=== PATIENT | male | born 1995 | race Caucasian/White ===

== ENCOUNTER 2018-01-06 21:37 | Inpatient (IN) | payer MEDICAID, SELFPAY ==
[2018-01-06 22:35] LABS: HEMATOCRIT 43.4 % (42.0-52.0); HEMOGLOBIN 14.4 g/dl (14.0-18.0); MEAN CORPUSCULAR HEMOGLOBIN 29.8 pg (27.0-33.0); MEAN CORPUSCULAR HGB CONC 33.2 g/dl (32.0-36.5); MEAN CORPUSCULAR VOLUME 89.7 fl (80.0-96.0); PLATELET COUNT, AUTOMATED 238 10^3/uL (150-450); RED BLOOD COUNT 4.84 10^6/uL (4.30-6.10); RED CELL DISTRIBUTION WIDTH 13.1 % (11.5-14.5); WHITE BLOOD COUNT 10.3 10^3/uL (4.0-10.0)
[2018-01-06 23:07] LABS: AMPHETAMINES LEVEL URINE NEGATIVE (NEGATIVE); BARBITURATES URINE NEGATIVE (NEGATIVE); BENZODIAZEPINES URINE NEGATIVE (NEGATIVE); CANNABINOIDS URINE NEGATIVE (NEGATIVE); COCAINE METABOLITE URINE NEGATIVE (NEGATIVE); METHADONE URINE NEGATIVE (NEGATIVE); OPIATES URINE NEGATIVE (NEGATIVE); PHENCYCLIDINE URINE NEGATIVE (NEGATIVE)
[2018-01-06 23:18] LABS: ALBUMIN 3.9 GM/DL (3.2-5.2); ALBUMIN/GLOBULIN RATIO 1.15 (1.00-1.93); ALKALINE PHOSPHATASE 51 U/L (45-117); ALT/SGPT 69 U/L (12-78); ANION GAP 5 MEQ/L (8-16); AST/SGOT 28 U/L (7-37); BILIRUBIN,DIRECT < 0.1 MG/DL (0.0-0.2); BILIRUBIN,TOTAL 0.2 MG/DL (0.2-1.0); BLOOD UREA NITROGEN 16 MG/DL (7-18); CALCIUM LEVEL 9.1 MG/DL (8.5-10.1); CARBON DIOXIDE LEVEL 31 MEQ/L (21-32); CHLORIDE LEVEL 104 MEQ/L (98-107); CREATININE FOR GFR 0.85 MG/DL (0.70-1.30); ETHYL ALCOHOL (ETHANOL) < 0.003 % (0.000-0.010); GLOMERULAR FILTRATION RATE > 60.0 (>60); GLUCOSE, FASTING 95 MG/DL (70-100); POTASSIUM SERUM 4.3 MEQ/L (3.5-5.1); SALICYLATE LEVEL < 1.7 MG/DL (5.0-30.0); SODIUM LEVEL 140 MEQ/L (136-145); THYROID STIMULATING HORMONE 0.063 uIU/ML (0.358-3.740); TOTAL PROTEIN 7.3 GM/DL (6.4-8.2); VALPROIC ACID (DEPAKOTE) 68.1 UG/ML (50.0-100.0)
[2018-01-06 23:20] LABS: ACETAMINOPHEN LEVEL < 2.0 UG/ML (10.0-30.0)
[2018-01-07] MEDS ORDERED: MOM 30ML SUSPENSION UDC PO (00:30)
[2018-01-07] MEDS ORDERED: ACETAMINOPHEN TAB 650MG DOSE (2X325MG) PO (00:30)
[2018-01-07] MEDS ORDERED: ALBUTEROL 90 MCG/ACT 8GM HFA INHALER INH (09:45)
[2018-01-07] MEDS: DIVALPROEX 500 MG TAB PO ×2 (10:03→20:40)
[2018-01-07] MEDS: traZODone 50 MG TAB PO (20:40)
[2018-01-08 07:28] LABS: HEMATOCRIT 41.5 % (42.0-52.0); HEMOGLOBIN 13.9 g/dl (14.0-18.0); MEAN CORPUSCULAR HEMOGLOBIN 29.9 pg (27.0-33.0); MEAN CORPUSCULAR HGB CONC 33.5 g/dl (32.0-36.5); MEAN CORPUSCULAR VOLUME 89.2 fl (80.0-96.0); PLATELET COUNT, AUTOMATED 240 10^3/uL (150-450); RED BLOOD COUNT 4.65 10^6/uL (4.30-6.10); RED CELL DISTRIBUTION WIDTH 13.1 % (11.5-14.5); WHITE BLOOD COUNT 8.2 10^3/uL (4.0-10.0)
[2018-01-08 07:56] LABS: FREE THYROXINE INDEX 2.2 % (1.4-3.8); T UPTAKE 30 % (33-40); THYROID STIMULATING HORMONE 0.062 uIU/ML (0.358-3.740); THYROXINE (T4) 7.2 UG/DL (4.5-12.0)
[2018-01-08] MEDS: DIVALPROEX 500 MG TAB PO ×2 (08:19→20:37)
[2018-01-08] MEDS: INFLUENZA QUADRIVALENT PF VACCINE 0.5ML SYRINGE (90686) IM (08:20)
[2018-01-08] MEDS: traZODone 50 MG TAB PO (20:37)
[2018-01-09] MEDS: DIVALPROEX 500 MG TAB PO ×2 (08:19→20:41)
[2018-01-09] MEDS: traZODone 50 MG TAB PO (20:41)
[2018-01-09] MEDS: MAALOX 30 ML SUSP *UDC PO (21:17)
[2018-01-10 07:27] LABS: VALPROIC ACID (DEPAKOTE) 75.2 UG/ML (50.0-100.0)
[2018-01-10] MEDS: DIVALPROEX 500 MG TAB PO (08:05)
== END 2018-01-10 13:30 | disposition home or self-care (01) | DRG 754 ==
LOC: M ED 21:37 → M ED INP 01-07 00:20 → M PSY 01-07 02:17
DX: F32.9 Major depressive disorder, single episode, unspecified (principal); F84.0 Autistic disorder; G40.909 Epilepsy, unspecified, not intractable, without status epilepticus; F17.210 Nicotine dependence, cigarettes, uncomplicated; J45.909 Unspecified asthma, uncomplicated; Z79.899 Other long term (current) drug therapy; Z91.030 Bee allergy status; Z91.018 Allergy to other foods

== ENCOUNTER 2018-01-20 04:27 | Emergency (ER) | payer MEDICAID ==
[2018-01-20] MEDS: IBUPROFEN 600 MG TAB PO (06:15)
== END 2018-01-20 07:01 | disposition home or self-care (01) ==
LOC: M ED 04:27
DX: M25.572 Pain in left ankle and joints of left foot (principal); J45.909 Unspecified asthma, uncomplicated; F84.0 Autistic disorder; F33.9 Major depressive disorder, recurrent, unspecified; F20.9 Schizophrenia, unspecified; R56.9 Unspecified convulsions; F17.210 Nicotine dependence, cigarettes, uncomplicated; Z79.899 Other long term (current) drug therapy; Z86.2 Personal history of diseases of the blood and blood-forming organs and certain disorders involving the immune mechanism; Z91.018 Allergy to other foods; Z91.030 Bee allergy status
CPT/HCPCS: 73610

== ENCOUNTER 2018-12-09 20:58 | Emergency (ER) | payer MEDICAID ==
[~2018-12-09] VITALS: Ht 182.9 cm; Wt 83.2 kg
[~2018-12-09 20:58] MED LIST: DEPA1TAB3 PO; VENTAER INH; [UNRECOGNIZED DRUG - REMARK] PO
[2018-12-09 20:59] VITALS: BP 130/81
[2018-12-09] MEDS ORDERED: BENZ0.5T PO ×3 (21:07→21:22)
[2018-12-09] MEDS ORDERED: HALO5TA PO (21:07)
[2018-12-09] MEDS ORDERED: DEPA1TAB3 PO ×2 (21:20→21:22)
== END 2018-12-09 21:41 | disposition home or self-care (01) ==
LOC: M ED 20:58
DX: Z76.0 Encounter for issue of repeat prescription (principal); J45.909 Unspecified asthma, uncomplicated; G40.909 Epilepsy, unspecified, not intractable, without status epilepticus; F84.0 Autistic disorder; G80.9 Cerebral palsy, unspecified; Z79.899 Other long term (current) drug therapy; Z91.018 Allergy to other foods; Z91.030 Bee allergy status; F17.210 Nicotine dependence, cigarettes, uncomplicated

== ENCOUNTER 2022-09-02 16:25 | Inpatient (IN) | payer MEDICAID ==
[~2022-09-02] VITALS: Ht 180.3 cm; Wt 123.7 kg
[~2022-09-02 16:25] MED LIST changes: +BENZ0.5T23 PO; +HALO5TAB33 PO
[2022-09-02] MEDS ORDERED: LAMI25TA PO (16:35)
[2022-09-02 17:16] LABS: HEMATOCRIT 41.3 % (42.0-52.0); HEMOGLOBIN 13.8 g/dl (13.5-17.5); MEAN CORPUSCULAR HEMOGLOBIN 30.3 pg (27.0-33.0); MEAN CORPUSCULAR HGB CONC 33.4 g/dl (32.0-36.5); MEAN CORPUSCULAR VOLUME 90.6 fl (80.0-96.0); PLATELET COUNT, AUTOMATED 244 10^3/uL (150-450); RED BLOOD COUNT 4.56 10^6/uL (4.30-6.10); WHITE BLOOD COUNT 8.4 10^3/uL (4.0-10.0)
[2022-09-02 17:40] LABS: AMPHETAMINES LEVEL URINE NEGATIVE (NEGATIVE); BARBITURATES URINE NEGATIVE (NEGATIVE); BENZODIAZEPINES URINE NEGATIVE (NEGATIVE); CANNABINOIDS URINE POSITIVE (NEGATIVE); COCAINE METABOLITE URINE NEGATIVE (NEGATIVE); METHADONE URINE NEGATIVE (NEGATIVE); OPIATES URINE NEGATIVE (NEGATIVE); PHENCYCLIDINE URINE NEGATIVE (NEGATIVE)
[2022-09-02 17:54] LABS: RSV AMPLIFICATION NEGATIVE (NEGATIVE)
[2022-09-02 17:56] LABS: ACETAMINOPHEN LEVEL < 2.0 UG/ML (10.0-30.0); ALBUMIN 3.6 GM/DL (3.2-5.2); ALT/SGPT 30 U/L (12-78); BILIRUBIN,DIRECT 0.1 MG/DL (0.0-0.2); BILIRUBIN,TOTAL 0.3 MG/DL (0.2-1.0); BLOOD UREA NITROGEN 12 MG/DL (7-18); CALCIUM LEVEL 9.5 MG/DL (8.5-10.1); CARBON DIOXIDE LEVEL 29 MEQ/L (21-32); CHLORIDE LEVEL 103 MEQ/L (98-107); CREATININE FOR GFR 0.96 MG/DL (0.70-1.30); ETHYL ALCOHOL (ETHANOL) < 0.003 % (0.000-0.010); GLOMERULAR FILTRATION RATE > 60.0 (>60); GLUCOSE, FASTING 119 MG/DL (70-100); SALICYLATE LEVEL 2.1 MG/DL (5.0-30.0); SODIUM LEVEL 138 MEQ/L (136-145); THYROID STIMULATING HORMONE 0.727 uIU/ML (0.358-3.740); VALPROIC ACID (DEPAKOTE) 15.8 UG/ML (50.0-100.0)
[2022-09-02] MEDS ORDERED: VENTAER INH (21:03)
[2022-09-02] MEDS ORDERED: VALP1CAP2 PO (21:12)
[2022-09-02] MEDS ORDERED: HOME MED LIST COMPLETE! XX SCH (21:15)
[2022-09-03] MEDS ORDERED: lamoTRIgine 25MG TAB PO SCH (09:00)
[2022-09-03] MEDS ORDERED: ISOVUE-370 76% 100ML VIAL As Ordered ONE (11:15)
[2022-09-03] MEDS ORDERED: MOM 30ML SUSPENSION UDC PO PRN (14:10)
[2022-09-03] MEDS ORDERED: ALBUTEROL 90 MCG/ACT 8GM HFA INHALER INH PRN (14:10)
[2022-09-03] MEDS ORDERED: MAALOX 30 ML SUSP *UDC PO PRN (14:10)
[2022-09-03] MEDS: NICOTINE 21MG/24HR 1 EA TRANSDERMAL TD SCH (14:49)
[2022-09-03] MEDS: VALPROIC ACID 250MG CAP PO SCH (22:25)
[2022-09-04 06:18] VITALS: BP 129/77
[2022-09-04] MEDS ORDERED: INFLUENZA QUADRIVALENT PF VACCINE 0.5ML SYRINGE IM.IMMUN ONE (09:00)
[2022-09-04] MEDS: VALPROIC ACID 250MG CAP PO SCH ×2 (10:13→20:03)
[2022-09-04] MEDS: NICOTINE 21MG/24HR 1 EA TRANSDERMAL TD SCH (10:13)
[2022-09-04 18:08] VITALS: BP 134/60
[2022-09-04] MEDS: traZODone 50 MG TAB PO PRN (20:03)
[2022-09-04] MEDS: lamoTRIgine 25MG TAB PO SCH (20:03)
[2022-09-05 06:44] VITALS: BP 128/58
[2022-09-05] MEDS: lamoTRIgine 25MG TAB PO SCH ×2 (08:05→20:06)
[2022-09-05] MEDS: VALPROIC ACID 250MG CAP PO SCH ×2 (08:05→20:06)
[2022-09-05] MEDS: NICOTINE 21MG/24HR 1 EA TRANSDERMAL TD SCH (08:06)
[2022-09-05 18:25] VITALS: BP 133/60
[2022-09-05] MEDS: traZODone 50 MG TAB PO PRN (20:06)
[2022-09-06 06:33] VITALS: BP 130/60
[2022-09-06] MEDS: lamoTRIgine 25MG TAB PO SCH ×2 (08:19→21:48)
[2022-09-06] MEDS: VALPROIC ACID 250MG CAP PO SCH ×2 (08:19→21:49)
[2022-09-06] MEDS: NICOTINE 21MG/24HR 1 EA TRANSDERMAL TD SCH (08:20)
[2022-09-06 18:00] VITALS: BP 143/68
[2022-09-06] MEDS: traZODone 50 MG TAB PO PRN (22:49)
[2022-09-06] MEDS: LORazepam 1 MG TAB PO PRN (23:16)
[2022-09-07 07:14] VITALS: BP 130/81
[2022-09-07] MEDS: lamoTRIgine 25MG TAB PO SCH ×2 (08:17→20:47)
[2022-09-07] MEDS: NICOTINE 21MG/24HR 1 EA TRANSDERMAL TD SCH (08:18)
[2022-09-07] MEDS: VALPROIC ACID 250MG CAP PO SCH ×2 (11:37→20:47)
[2022-09-07 16:22] VITALS: BP 140/60
[2022-09-07] MEDS: LORazepam 1 MG TAB PO PRN (22:09)
[2022-09-07] MEDS: traZODone 50 MG TAB PO PRN (22:09)
[2022-09-08 06:42] VITALS: BP 136/81
[2022-09-08] MEDS: NICOTINE 21MG/24HR 1 EA TRANSDERMAL TD SCH (07:49)
[2022-09-08] MEDS: VALPROIC ACID 250MG CAP PO SCH ×2 (07:49→20:34)
[2022-09-08] MEDS: lamoTRIgine 25MG TAB PO SCH ×2 (07:50→20:34)
[2022-09-08 16:06] VITALS: BP 138/63
[2022-09-08] MEDS: LORazepam 1 MG TAB PO PRN (20:35)
[2022-09-09 06:43] VITALS: BP 127/77
[2022-09-09] MEDS: lamoTRIgine 25MG TAB PO SCH ×2 (09:59→20:16)
[2022-09-09] MEDS: NICOTINE 21MG/24HR 1 EA TRANSDERMAL TD SCH (10:00)
[2022-09-09] MEDS: VALPROIC ACID 250MG CAP PO SCH ×2 (10:01→20:17)
[2022-09-09 16:28] VITALS: BP 139/68
[2022-09-09] MEDS: traZODone 50 MG TAB PO PRN (20:16)
[2022-09-09] MEDS ORDERED: LORazepam 2 MG/ML VIAL IM STA (21:55)
[2022-09-09] MEDS ORDERED: diphenhydrAMINE 50MG/ML VIAL IM STA (21:55)
[2022-09-09] MEDS ORDERED: HALOPERIDOL DECANOATE 100 MG/ML VIAL (J1631) IM STA (21:55)
[2022-09-09] MEDS ORDERED: HALOPERIDOL 5MG/ML VIAL (J1630 PER 1) IM STA (22:02)
[2022-09-10 06:53] VITALS: BP 115/65
[2022-09-10] MEDS: NICOTINE 21MG/24HR 1 EA TRANSDERMAL TD SCH (09:40)
[2022-09-10] MEDS: lamoTRIgine 25MG TAB PO SCH ×2 (09:41→20:14)
[2022-09-10] MEDS: VALPROIC ACID 250MG CAP PO SCH ×2 (09:41→20:15)
[2022-09-10 18:45] VITALS: BP 132/66
[2022-09-11 06:17] VITALS: BP 137/65
[2022-09-11] MEDS: lamoTRIgine 25MG TAB PO SCH ×2 (08:09→20:28)
[2022-09-11] MEDS: NICOTINE 21MG/24HR 1 EA TRANSDERMAL TD SCH (08:09)
[2022-09-11] MEDS: VALPROIC ACID 250MG CAP PO SCH ×2 (08:09→20:27)
[2022-09-11 16:11] VITALS: BP 142/72
[2022-09-11] MEDS: LORazepam 1 MG TAB PO PRN (21:29)
[2022-09-12 06:09] VITALS: BP 132/61
[2022-09-12] MEDS: NICOTINE 21MG/24HR 1 EA TRANSDERMAL TD SCH (07:51)
[2022-09-12] MEDS: VALPROIC ACID 250MG CAP PO SCH ×2 (07:52→20:01)
[2022-09-12] MEDS: lamoTRIgine 25MG TAB PO SCH ×2 (07:52→20:00)
[2022-09-12 16:22] VITALS: BP 136/82
[2022-09-12] MEDS: LORazepam 1 MG TAB PO PRN (16:42)
[2022-09-13 06:32] VITALS: BP 132/74
[2022-09-13] MEDS: lamoTRIgine 25MG TAB PO SCH ×2 (09:09→20:11)
[2022-09-13] MEDS: NICOTINE 21MG/24HR 1 EA TRANSDERMAL TD SCH (09:09)
[2022-09-13] MEDS: VALPROIC ACID 250MG CAP PO SCH ×2 (09:09→20:11)
[2022-09-13 16:13] VITALS: BP 125/89
[2022-09-13] MEDS ORDERED: OLANZapine ORAL DISINTEGRATING TAB 5MG PO ONE (21:25)
[2022-09-14 06:27] VITALS: BP 145/72
[2022-09-14] MEDS: lamoTRIgine 25MG TAB PO SCH ×2 (09:59→20:05)
[2022-09-14] MEDS: VALPROIC ACID 250MG CAP PO SCH ×2 (10:00→20:05)
[2022-09-14] MEDS: NICOTINE 21MG/24HR 1 EA TRANSDERMAL TD SCH (10:01)
[2022-09-14] MEDS ORDERED: OLANZapine ORAL DISINTEGRATING TAB 5MG PO PRN (13:45)
[2022-09-14 18:08] VITALS: BP 136/71
[2022-09-14] MEDS: IBUPROFEN 400MG TAB PO PRN (20:06)
[2022-09-15 06:23] VITALS: BP 128/63
[2022-09-15] MEDS: NICOTINE 21MG/24HR 1 EA TRANSDERMAL TD SCH (08:07)
[2022-09-15] MEDS: lamoTRIgine 25MG TAB PO SCH ×2 (08:07→20:29)
[2022-09-15] MEDS: VALPROIC ACID 250MG CAP PO SCH ×2 (08:07→20:29)
[2022-09-15 18:05] VITALS: BP 144/72
[2022-09-15] MEDS: IBUPROFEN 400MG TAB PO PRN (20:30)
[2022-09-16 05:57] VITALS: BP 140/75
[2022-09-16] MEDS: NICOTINE 21MG/24HR 1 EA TRANSDERMAL TD SCH (09:00)
[2022-09-16] MEDS: VALPROIC ACID 250MG CAP PO SCH ×2 (09:10→20:18)
[2022-09-16] MEDS: lamoTRIgine 25MG TAB PO SCH ×2 (09:10→20:18)
[2022-09-16 17:49] VITALS: BP 142/71
[2022-09-16] MEDS: IBUPROFEN 800 MG TAB PO PRN (20:56)
[2022-09-17 06:12] VITALS: BP 138/69
[2022-09-17] MEDS: lamoTRIgine 25MG TAB PO SCH ×2 (08:09→20:08)
[2022-09-17] MEDS: VALPROIC ACID 250MG CAP PO SCH ×2 (08:09→20:09)
[2022-09-17] MEDS: NICOTINE 21MG/24HR 1 EA TRANSDERMAL TD SCH (08:10)
[2022-09-17 18:11] VITALS: BP 142/71
[2022-09-17] MEDS: traZODone 50 MG TAB PO PRN (22:22)
[2022-09-18 06:01] VITALS: BP 127/60
[2022-09-18] MEDS: lamoTRIgine 25MG TAB PO SCH ×2 (08:19→20:42)
[2022-09-18] MEDS: NICOTINE 21MG/24HR 1 EA TRANSDERMAL TD SCH (08:19)
[2022-09-18] MEDS: VALPROIC ACID 250MG CAP PO SCH ×2 (08:19→20:42)
[2022-09-18 18:01] VITALS: BP 138/88
[2022-09-19] MEDS: traZODone 50 MG TAB PO PRN ×2 (00:13→23:49)
[2022-09-19 06:26] VITALS: BP 131/57
[2022-09-19] MEDS: NICOTINE 21MG/24HR 1 EA TRANSDERMAL TD SCH (08:08)
[2022-09-19] MEDS: VALPROIC ACID 250MG CAP PO SCH ×2 (08:08→20:22)
[2022-09-19] MEDS: lamoTRIgine 25MG TAB PO SCH ×2 (08:09→20:23)
[2022-09-19 18:00] VITALS: BP 149/78
[2022-09-20 05:55] VITALS: BP 117/57
[2022-09-20] MEDS: lamoTRIgine 25MG TAB PO SCH ×2 (08:10→20:13)
[2022-09-20] MEDS: VALPROIC ACID 250MG CAP PO SCH ×2 (08:10→20:13)
[2022-09-20] MEDS: NICOTINE 21MG/24HR 1 EA TRANSDERMAL TD SCH (08:10)
[2022-09-20 18:32] VITALS: BP 140/75
[2022-09-20] MEDS: traZODone 50 MG TAB PO PRN (23:20)
[2022-09-21 06:02] VITALS: BP 130/60
[2022-09-21] MEDS: NICOTINE 21MG/24HR 1 EA TRANSDERMAL TD SCH (08:26)
[2022-09-21] MEDS: lamoTRIgine 25MG TAB PO SCH ×2 (08:26→21:12)
[2022-09-21] MEDS: VALPROIC ACID 250MG CAP PO SCH ×2 (08:27→21:12)
[2022-09-21 16:21] VITALS: BP 145/69
[2022-09-21] MEDS: IBUPROFEN 800 MG TAB PO PRN (21:13)
[2022-09-21] MEDS: traZODone 50 MG TAB PO PRN (22:13)
[2022-09-22 06:19] VITALS: BP 126/73
[2022-09-22] MEDS: NICOTINE 21MG/24HR 1 EA TRANSDERMAL TD SCH (08:24)
[2022-09-22] MEDS: VALPROIC ACID 250MG CAP PO SCH ×2 (08:24→20:05)
[2022-09-22] MEDS: lamoTRIgine 25MG TAB PO SCH ×2 (08:24→20:05)
[2022-09-22] MEDS ORDERED: HALO5TAB33 PO (09:48)
[2022-09-22] MEDS ORDERED: IBUP80TA PO (09:48)
[2022-09-22 16:17] VITALS: BP 136/72
[2022-09-22] MEDS: IBUPROFEN 800 MG TAB PO PRN (20:05)
[2022-09-22] MEDS: traZODone 50 MG TAB PO PRN (22:56)
[2022-09-23 06:10] VITALS: BP 108/55
[2022-09-23] MEDS: NICOTINE 21MG/24HR 1 EA TRANSDERMAL TD SCH (09:00)
[2022-09-23] MEDS: lamoTRIgine 25MG TAB PO SCH ×2 (09:10→20:16)
[2022-09-23] MEDS: VALPROIC ACID 250MG CAP PO SCH ×2 (09:10→20:17)
[2022-09-23 16:37] VITALS: BP 140/68
[2022-09-23] MEDS: traZODone 50 MG TAB PO PRN (22:23)
[2022-09-24 06:34] VITALS: BP 128/57
[2022-09-24] MEDS: lamoTRIgine 25MG TAB PO SCH ×2 (08:22→20:30)
[2022-09-24] MEDS: VALPROIC ACID 250MG CAP PO SCH ×2 (08:23→20:30)
[2022-09-24] MEDS: NICOTINE 21MG/24HR 1 EA TRANSDERMAL TD SCH (08:24)
[2022-09-24 18:12] VITALS: BP 126/82
[2022-09-24] MEDS: traZODone 50 MG TAB PO PRN (23:11)
[2022-09-25 06:22] VITALS: BP 126/68
[2022-09-25] MEDS: NICOTINE 21MG/24HR 1 EA TRANSDERMAL TD SCH (09:00)
[2022-09-25] MEDS: lamoTRIgine 25MG TAB PO SCH ×2 (09:10→20:12)
[2022-09-25] MEDS: VALPROIC ACID 250MG CAP PO SCH ×2 (09:41→20:11)
[2022-09-25 16:32] VITALS: BP 140/78
[2022-09-25] MEDS: IBUPROFEN 800 MG TAB PO PRN (20:12)
[2022-09-25] MEDS: traZODone 50 MG TAB PO PRN (20:55)
[2022-09-26 06:34] VITALS: BP 116/52
[2022-09-26] MEDS: lamoTRIgine 25MG TAB PO SCH ×2 (07:54→20:28)
[2022-09-26] MEDS: NICOTINE 21MG/24HR 1 EA TRANSDERMAL TD SCH (07:55)
[2022-09-26] MEDS: VALPROIC ACID 250MG CAP PO SCH ×2 (07:55→20:28)
[2022-09-26] MEDS: IBUPROFEN 800 MG TAB PO PRN ×2 (07:56→20:28)
[2022-09-26 16:12] VITALS: BP 144/70
[2022-09-26] MEDS: traZODone 50 MG TAB PO PRN (21:59)
[2022-09-27 06:28] VITALS: BP 124/66
[2022-09-27] MEDS: NICOTINE 21MG/24HR 1 EA TRANSDERMAL TD SCH (09:00)
[2022-09-27] MEDS: lamoTRIgine 25MG TAB PO SCH ×2 (09:20→20:14)
[2022-09-27] MEDS: VALPROIC ACID 250MG CAP PO SCH ×2 (09:20→20:15)
[2022-09-27] MEDS: IBUPROFEN 800 MG TAB PO PRN ×2 (09:21→21:22)
[2022-09-27 16:22] VITALS: BP 138/69
[2022-09-27] MEDS ORDERED: ACETAMINOPHEN 500 MG TAB PO PRN (18:25)
[2022-09-27] MEDS: traZODone 50 MG TAB PO PRN (22:25)
[2022-09-28 06:09] VITALS: BP 144/67
[2022-09-28] MEDS: lamoTRIgine 25MG TAB PO SCH ×2 (09:00→20:51)
[2022-09-28] MEDS: NICOTINE 21MG/24HR 1 EA TRANSDERMAL TD SCH (09:00)
[2022-09-28] MEDS: VALPROIC ACID 250MG CAP PO SCH ×2 (09:00→20:51)
[2022-09-28 17:06] VITALS: BP 141/76
[2022-09-28] MEDS: IBUPROFEN 800 MG TAB PO PRN (20:52)
[2022-09-28] MEDS: traZODone 50 MG TAB PO PRN (22:59)
[2022-09-29 07:05] VITALS: BP 138/73
[2022-09-29] MEDS: NICOTINE 21MG/24HR 1 EA TRANSDERMAL TD SCH (09:00)
[2022-09-29] MEDS: VALPROIC ACID 250MG CAP PO SCH ×2 (09:18→21:37)
[2022-09-29] MEDS: lamoTRIgine 25MG TAB PO SCH ×2 (09:18→21:37)
[2022-09-29 18:13] VITALS: BP 132/76
[2022-09-29] MEDS: hydrOXYzine 50 MG TAB PO PRN (22:06)
[2022-09-29 22:22] LABS: RSV AMPLIFICATION NEGATIVE (NEGATIVE)
[2022-09-29] MEDS: traZODone 50 MG TAB PO PRN (22:55)
[2022-09-30 06:28] VITALS: BP 130/66
[2022-09-30] MEDS: NICOTINE 21MG/24HR 1 EA TRANSDERMAL TD SCH (09:00)
[2022-09-30] MEDS: VALPROIC ACID 250MG CAP PO SCH ×2 (09:29→20:17)
[2022-09-30] MEDS: lamoTRIgine 25MG TAB PO SCH ×2 (09:29→20:17)
[2022-09-30 18:13] VITALS: BP 130/77
[2022-09-30] MEDS: IBUPROFEN 800 MG TAB PO PRN (20:18)
[2022-09-30] MEDS: traZODone 50 MG TAB PO PRN (21:52)
[2022-09-30] MEDS: hydrOXYzine 50 MG TAB PO PRN (21:52)
[2022-10-01 06:33] VITALS: BP 135/70
[2022-10-01] MEDS: NICOTINE 21MG/24HR 1 EA TRANSDERMAL TD SCH (09:00)
[2022-10-01] MEDS: lamoTRIgine 25MG TAB PO SCH ×2 (09:07→20:04)
[2022-10-01] MEDS: VALPROIC ACID 250MG CAP PO SCH ×2 (09:07→20:04)
[2022-10-01] MEDS: IBUPROFEN 800 MG TAB PO PRN (09:08)
[2022-10-01 19:24] VITALS: BP 144/62
[2022-10-01] MEDS: hydrOXYzine 50 MG TAB PO PRN (20:04)
[2022-10-01] MEDS: traZODone 50 MG TAB PO PRN (23:14)
[2022-10-02 06:06] VITALS: BP 145/77
[2022-10-02] MEDS: NICOTINE 21MG/24HR 1 EA TRANSDERMAL TD SCH (09:00)
[2022-10-02] MEDS: VALPROIC ACID 250MG CAP PO SCH ×2 (09:22→20:51)
[2022-10-02] MEDS: lamoTRIgine 25MG TAB PO SCH ×2 (09:22→20:50)
[2022-10-02 18:27] VITALS: BP 136/76
[2022-10-02] MEDS: traZODone 50 MG TAB PO PRN (22:00)
[2022-10-03 07:13] VITALS: BP 136/78
[2022-10-03] MEDS: NICOTINE 21MG/24HR 1 EA TRANSDERMAL TD SCH (08:55)
[2022-10-03] MEDS: VALPROIC ACID 250MG CAP PO SCH ×2 (08:56→20:36)
[2022-10-03] MEDS: lamoTRIgine 25MG TAB PO SCH ×2 (08:56→20:36)
[2022-10-03 18:14] VITALS: BP 145/77
[2022-10-03] MEDS: hydrOXYzine 50 MG TAB PO PRN (20:36)
[2022-10-03] MEDS: traZODone 50 MG TAB PO PRN (23:18)
[2022-10-04 06:04] VITALS: BP 135/61
[2022-10-04] MEDS: NICOTINE 21MG/24HR 1 EA TRANSDERMAL TD SCH (09:00)
[2022-10-04] MEDS: lamoTRIgine 25MG TAB PO SCH ×2 (09:17→20:29)
[2022-10-04] MEDS: VALPROIC ACID 250MG CAP PO SCH ×2 (09:17→20:29)
[2022-10-04 18:12] VITALS: BP 139/78
[2022-10-04] MEDS: hydrOXYzine 50 MG TAB PO PRN (21:59)
[2022-10-04] MEDS: traZODone 50 MG TAB PO PRN (21:59)
[2022-10-05 06:11] VITALS: BP 132/59
[2022-10-05] MEDS: NICOTINE 21MG/24HR 1 EA TRANSDERMAL TD SCH (07:57)
[2022-10-05] MEDS: VALPROIC ACID 250MG CAP PO SCH ×2 (07:58→20:03)
[2022-10-05] MEDS: lamoTRIgine 25MG TAB PO SCH ×2 (07:59→20:03)
[2022-10-05 16:27] VITALS: BP 141/63
[2022-10-05] MEDS: hydrOXYzine 50 MG TAB PO PRN (20:04)
[2022-10-05] MEDS: IBUPROFEN 800 MG TAB PO PRN (21:53)
[2022-10-05] MEDS: traZODone 50 MG TAB PO PRN (21:53)
[2022-10-06 06:30] VITALS: BP 116/62
[2022-10-06] MEDS: lamoTRIgine 25MG TAB PO SCH ×2 (08:19→19:50)
[2022-10-06] MEDS: NICOTINE 21MG/24HR 1 EA TRANSDERMAL TD SCH (08:19)
[2022-10-06] MEDS: VALPROIC ACID 250MG CAP PO SCH ×2 (08:20→19:50)
[2022-10-06 16:17] VITALS: BP 141/72
[2022-10-06] MEDS: hydrOXYzine 50 MG TAB PO PRN (21:02)
[2022-10-06] MEDS: traZODone 50 MG TAB PO PRN (21:48)
[2022-10-07 06:20] VITALS: BP 129/63
[2022-10-07] MEDS: VALPROIC ACID 250MG CAP PO SCH ×2 (07:59→20:11)
[2022-10-07] MEDS: lamoTRIgine 25MG TAB PO SCH ×2 (07:59→20:11)
[2022-10-07] MEDS: NICOTINE 21MG/24HR 1 EA TRANSDERMAL TD SCH (08:01)
[2022-10-07 16:31] VITALS: BP 145/73
[2022-10-07] MEDS: traZODone 50 MG TAB PO PRN (21:41)
[2022-10-08 06:11] VITALS: BP 128/60
[2022-10-08] MEDS: lamoTRIgine 25MG TAB PO SCH ×2 (08:56→20:28)
[2022-10-08] MEDS: VALPROIC ACID 250MG CAP PO SCH ×2 (08:57→20:28)
[2022-10-08] MEDS: NICOTINE 21MG/24HR 1 EA TRANSDERMAL TD SCH (08:58)
[2022-10-08 18:27] VITALS: BP 130/70
[2022-10-08] MEDS: traZODone 50 MG TAB PO PRN (20:59)
[2022-10-09 06:08] VITALS: BP 125/61
[2022-10-09] MEDS: NICOTINE 21MG/24HR 1 EA TRANSDERMAL TD SCH (08:06)
[2022-10-09] MEDS: VALPROIC ACID 250MG CAP PO SCH ×2 (08:08→20:14)
[2022-10-09] MEDS: lamoTRIgine 25MG TAB PO SCH ×2 (08:08→20:14)
[2022-10-09 16:17] VITALS: BP 133/64
[2022-10-09] MEDS: traZODone 50 MG TAB PO PRN (21:35)
[2022-10-10 06:18] VITALS: BP 122/67
[2022-10-10] MEDS: NICOTINE 21MG/24HR 1 EA TRANSDERMAL TD SCH (08:33)
[2022-10-10] MEDS: lamoTRIgine 25MG TAB PO SCH ×2 (08:35→20:23)
[2022-10-10] MEDS: VALPROIC ACID 250MG CAP PO SCH ×2 (08:35→20:23)
[2022-10-10 16:15] VITALS: BP 136/68
[2022-10-10] MEDS: hydrOXYzine 50 MG TAB PO PRN (21:09)
[2022-10-10] MEDS: IBUPROFEN 800 MG TAB PO PRN (21:12)
[2022-10-10] MEDS: traZODone 50 MG TAB PO PRN (22:28)
[2022-10-11 06:13] VITALS: BP 137/62
[2022-10-11] MEDS: NICOTINE 21MG/24HR 1 EA TRANSDERMAL TD SCH (08:03)
[2022-10-11] MEDS: VALPROIC ACID 250MG CAP PO SCH ×2 (08:06→20:23)
[2022-10-11] MEDS: lamoTRIgine 25MG TAB PO SCH ×2 (08:06→20:22)
[2022-10-11 16:13] VITALS: BP 131/63
[2022-10-11] MEDS: traZODone 50 MG TAB PO PRN (22:23)
[2022-10-12 06:31] VITALS: BP 123/58
[2022-10-12] MEDS: lamoTRIgine 25MG TAB PO SCH ×2 (08:01→20:25)
[2022-10-12] MEDS: VALPROIC ACID 250MG CAP PO SCH ×2 (08:01→20:25)
[2022-10-12] MEDS: NICOTINE 21MG/24HR 1 EA TRANSDERMAL TD SCH (08:01)
[2022-10-12 18:12] VITALS: BP 133/61
[2022-10-12] MEDS: IBUPROFEN 800 MG TAB PO PRN (19:42)
[2022-10-12] MEDS: traZODone 50 MG TAB PO PRN (22:50)
[2022-10-13 06:30] VITALS: BP 113/60
[2022-10-13] MEDS: lamoTRIgine 25MG TAB PO SCH ×2 (08:05→20:41)
[2022-10-13] MEDS: NICOTINE 21MG/24HR 1 EA TRANSDERMAL TD SCH (08:05)
[2022-10-13] MEDS: VALPROIC ACID 250MG CAP PO SCH ×2 (08:05→20:41)
[2022-10-13 18:11] VITALS: BP 155/70
[2022-10-13] MEDS: hydrOXYzine 50 MG TAB PO PRN (22:22)
[2022-10-13] MEDS: traZODone 50 MG TAB PO PRN (22:22)
[2022-10-14 06:07] VITALS: BP 132/58
[2022-10-14] MEDS: VALPROIC ACID 250MG CAP PO SCH ×2 (08:08→20:09)
[2022-10-14] MEDS: lamoTRIgine 25MG TAB PO SCH ×2 (08:08→20:09)
[2022-10-14] MEDS: NICOTINE 21MG/24HR 1 EA TRANSDERMAL TD SCH (08:09)
[2022-10-14 18:17] VITALS: BP 130/68
[2022-10-14] MEDS: traZODone 50 MG TAB PO PRN (21:28)
[2022-10-15 06:20] VITALS: BP 136/58
[2022-10-15] MEDS: NICOTINE 21MG/24HR 1 EA TRANSDERMAL TD SCH (08:02)
[2022-10-15] MEDS: VALPROIC ACID 250MG CAP PO SCH ×2 (08:03→20:23)
[2022-10-15] MEDS: lamoTRIgine 25MG TAB PO SCH ×2 (08:04→20:22)
[2022-10-15 18:35] VITALS: BP 137/70
[2022-10-15] MEDS: traZODone 50 MG TAB PO PRN (22:23)
[2022-10-16 06:03] VITALS: BP 124/58
[2022-10-16] MEDS: lamoTRIgine 25MG TAB PO SCH ×2 (08:05→21:20)
[2022-10-16] MEDS: VALPROIC ACID 250MG CAP PO SCH ×2 (08:06→21:21)
[2022-10-16] MEDS: NICOTINE 21MG/24HR 1 EA TRANSDERMAL TD SCH (08:07)
[2022-10-16 18:18] VITALS: BP 129/67
[2022-10-16] MEDS: traZODone 50 MG TAB PO PRN (21:20)
[2022-10-17] MEDS: lamoTRIgine 25MG TAB PO SCH ×2 (08:08→22:32)
[2022-10-17] MEDS: VALPROIC ACID 250MG CAP PO SCH ×2 (08:09→22:32)
[2022-10-17] MEDS: NICOTINE 21MG/24HR 1 EA TRANSDERMAL TD SCH (08:09)
[2022-10-17 18:22] VITALS: BP 132/80
[2022-10-17] MEDS: traZODone 50 MG TAB PO PRN (22:32)
[2022-10-18 06:00] VITALS: BP 143/64
[2022-10-18] MEDS: VALPROIC ACID 250MG CAP PO SCH ×2 (08:23→20:13)
[2022-10-18] MEDS: lamoTRIgine 25MG TAB PO SCH ×2 (08:23→20:14)
[2022-10-18] MEDS: NICOTINE 21MG/24HR 1 EA TRANSDERMAL TD SCH (08:24)
[2022-10-18 16:48] VITALS: BP 145/77
[2022-10-18] MEDS: traZODone 50 MG TAB PO PRN (21:28)
[2022-10-18] MEDS: IBUPROFEN 800 MG TAB PO PRN (22:49)
[2022-10-19 06:23] VITALS: BP 130/74
[2022-10-19] MEDS: lamoTRIgine 25MG TAB PO SCH ×2 (08:15→20:04)
[2022-10-19] MEDS: VALPROIC ACID 250MG CAP PO SCH ×2 (08:16→20:04)
[2022-10-19] MEDS: NICOTINE 21MG/24HR 1 EA TRANSDERMAL TD SCH (08:17)
[2022-10-19 16:47] VITALS: BP 138/67
[2022-10-19] MEDS: traZODone 50 MG TAB PO PRN (22:42)
[2022-10-20 06:29] VITALS: BP 136/68
[2022-10-20] MEDS: NICOTINE 21MG/24HR 1 EA TRANSDERMAL TD SCH (08:07)
[2022-10-20] MEDS: lamoTRIgine 25MG TAB PO SCH ×2 (08:07→19:56)
[2022-10-20] MEDS: VALPROIC ACID 250MG CAP PO SCH ×2 (08:07→19:55)
[2022-10-20 16:18] VITALS: BP 150/70
[2022-10-20] MEDS: traZODone 50 MG TAB PO PRN (22:34)
[2022-10-21 06:07] VITALS: BP 122/69
[2022-10-21] MEDS: VALPROIC ACID 250MG CAP PO SCH (08:02)
[2022-10-21] MEDS: NICOTINE 21MG/24HR 1 EA TRANSDERMAL TD SCH (08:03)
[2022-10-21] MEDS: lamoTRIgine 25MG TAB PO SCH (08:03)
[2022-10-21] MEDS ORDERED: LAMI25TA PO (09:02)
[2022-10-21] MEDS ORDERED: VENTAER INH (09:02)
[2022-10-21] MEDS ORDERED: VALP1CAP2 PO (09:02)
== END 2022-10-21 13:36 | disposition home or self-care (01) | DRG 750 ==
LOC: M ED 16:25 → M ED INP 09-03 14:07 → M PSY 09-03 14:56
PROVIDERS: ADMIT Psychiatry & Neurology Psychiatry; ATTEND Psychiatry & Neurology Psychiatry
DX: F20.0 Paranoid schizophrenia (principal); F79 Unspecified intellectual disabilities; R45.851 Suicidal ideations; Z59.01 Sheltered homelessness; G40.909 Epilepsy, unspecified, not intractable, without status epilepticus; F84.0 Autistic disorder; M25.562 Pain in left knee; F43.21 Adjustment disorder with depressed mood; J45.20 Mild intermittent asthma, uncomplicated; Z91.013 Allergy to seafood; Z91.018 Allergy to other foods; Z91.030 Bee allergy status; Z79.899 Other long term (current) drug therapy; Z91.51 Personal history of suicidal behavior

== ENCOUNTER 2022-11-04 00:02 | Emergency (ER) | payer MEDICAID, OTHER ==
[~2022-11-04] VITALS: Ht 172.7 cm; Wt 127.4 kg
[~2022-11-04 00:02] MED LIST changes: +IBUP80TA PO; +LAMI25TA PO; +VALP1CAP2 PO
[2022-11-04] MEDS ORDERED: KETOROLAC TROMETHAMINE 10 MG TAB PO ONE (04:25)
[2022-11-04] MEDS ORDERED: KETO10TAB PO (04:25)
[2022-11-04 04:32] VITALS: BP 129/63
== END 2022-11-04 04:36 | disposition home or self-care (01) ==
LOC: M ED 00:02
DX: S09.90XA Unspecified injury of head, initial encounter (principal); G40.909 Epilepsy, unspecified, not intractable, without status epilepticus; F17.200 Nicotine dependence, unspecified, uncomplicated; Z79.899 Other long term (current) drug therapy; Z91.013 Allergy to seafood; Z91.018 Allergy to other foods; Z91.030 Bee allergy status

== ENCOUNTER 2022-11-09 05:30 | Emergency (ER) | payer OTHER ==
[~2022-11-09] VITALS: Ht 180.3 cm; Wt 98.6 kg
[~2022-11-09 05:30] MED LIST changes: +KETO10TAB PO
[2022-11-09 08:11] LABS: BASO # 0.1 10^3/uL (0.0-0.2); BASO % 0.8 % (0.0-1.0); EOS # 0.3 10^3/uL (0.0-0.5); HEMATOCRIT 44.3 % (42.0-52.0); HEMOGLOBIN 15.2 g/dl (13.5-17.5); LYMPH % 39.7 % (24.0-44.0); MEAN CORPUSCULAR HGB CONC 34.3 g/dl (32.0-36.5); MEAN CORPUSCULAR VOLUME 90.2 fl (80.0-96.0); MONO # 0.7 10^3/uL (0.0-0.8); MONO % 8.8 % (2.0-8.0); NEUTROPHILS # 3.5 10^3/uL (1.5-8.5); NEUTROPHILS % 46.6 % (36.0-66.0); PLATELET COUNT, AUTOMATED 307 10^3/uL (150-450); RED BLOOD COUNT 4.91 10^6/uL (4.30-6.10); WHITE BLOOD COUNT 7.6 10^3/uL (4.0-10.0)
[2022-11-09 08:37] LABS: BLOOD UREA NITROGEN 17 MG/DL (9-23); CALCIUM LEVEL 9.7 MG/DL (8.5-10.1); CARBON DIOXIDE LEVEL 24 MMOL/L (20-31); CHLORIDE LEVEL 106 MMOL/L (98-107); CREATININE FOR GFR 0.72 MG/DL (0.70-1.30); GLOMERULAR FILTRATION RATE > 60.0 (>60); GLUCOSE, FASTING 91 MG/DL (60-100); POTASSIUM SERUM 4.6 MMOL/L (3.5-5.1); SODIUM LEVEL 140 MMOL/L (136-145)
[2022-11-09 08:43] LABS: ERYTHROCYTE SEDIMENTATION RATE 6 mm/hr (0-15)
[2022-11-09 09:57] VITALS: BP 128/81
== END 2022-11-09 10:40 | disposition home or self-care (01) ==
LOC: M ED 05:30 → EDBD 05:30 → M ED 10:40
DX: S90.512A Abrasion, left ankle, initial encounter (principal); R59.0 Localized enlarged lymph nodes; R05.9 Cough, unspecified; E66.9 Obesity, unspecified; J45.909 Unspecified asthma, uncomplicated; F31.9 Bipolar disorder, unspecified; F84.0 Autistic disorder; F17.200 Nicotine dependence, unspecified, uncomplicated; F12.10 Cannabis abuse, uncomplicated; Z79.899 Other long term (current) drug therapy; Z91.018 Allergy to other foods; Z91.013 Allergy to seafood; Z91.030 Bee allergy status

== ENCOUNTER 2022-12-25 18:13 | Inpatient (IN) | payer OTHER ==
[~2022-12-25] VITALS: Ht 180.3 cm; Wt 121.1 kg
[2022-12-25 19:38] LABS: MEAN CORPUSCULAR HEMOGLOBIN 29.8 pg (27.0-33.0); MEAN CORPUSCULAR HGB CONC 33.3 g/dl (32.0-36.5); MEAN CORPUSCULAR VOLUME 89.5 fl (80.0-96.0); PLATELET COUNT, AUTOMATED 260 10^3/uL (150-450); RED BLOOD COUNT 5.03 10^6/uL (4.30-6.10); WHITE BLOOD COUNT 7.2 10^3/uL (4.0-10.0)
[2022-12-25 20:02] LABS: AMPHETAMINES LEVEL URINE NEGATIVE (NEGATIVE); BARBITURATES URINE NEGATIVE (NEGATIVE); BENZODIAZEPINES URINE NEGATIVE (NEGATIVE)
[2022-12-25 20:03] LABS: COCAINE METABOLITE URINE NEGATIVE (NEGATIVE); METHADONE URINE NEGATIVE (NEGATIVE); OPIATES URINE NEGATIVE (NEGATIVE); PHENCYCLIDINE URINE NEGATIVE (NEGATIVE)
[2022-12-25 20:05] LABS: ETHYL ALCOHOL (ETHANOL) 0.003 % (0.000-0.010); VALPROIC ACID (DEPAKOTE) < 3.0 UG/ML (50.0-100.0)
[2022-12-25 20:06] LABS: ACETAMINOPHEN LEVEL < 2.0 UG/ML (10.0-20.0)
[2022-12-25 20:07] LABS: ALKALINE PHOSPHATASE 52 U/L (46-116); ALT/SGPT 45 U/L (7.0-40); AST/SGOT 25 U/L (<34); BILIRUBIN,DIRECT 0.1 MG/DL (<0.4); BILIRUBIN,TOTAL 0.4 MG/DL (0.3-1.2); BLOOD UREA NITROGEN 15 MG/DL (9-23); CALCIUM LEVEL 9.4 MG/DL (8.5-10.1); CARBON DIOXIDE LEVEL 28 MMOL/L (20-31); CHLORIDE LEVEL 104 MMOL/L (98-107); CREATININE FOR GFR 0.84 MG/DL (0.70-1.30); GLOMERULAR FILTRATION RATE > 60.0 (>60); GLUCOSE, FASTING 117 MG/DL (60-100); POTASSIUM SERUM 4.4 MMOL/L (3.5-5.1); SALICYLATE LEVEL < 3.0 MG/DL (<30); SODIUM LEVEL 138 MMOL/L (136-145); TOTAL PROTEIN 7.3 G/DL (5.7-8.2)
[2022-12-25 20:09] LABS: THYROID STIMULATING HORMONE 0.953 uIU/ML (0.55-4.78)
[2022-12-25 20:10] LABS: CANNABINOIDS URINE POSITIVE (NEGATIVE)
[2022-12-25 21:52] LABS: RSV AMPLIFICATION NEGATIVE (NEGATIVE)
[2022-12-25] MEDS ORDERED: LAMO25TA4 PO (22:47)
[2022-12-25] MEDS ORDERED: VALP1CAP2 PO (22:47)
[2022-12-25] MEDS ORDERED: MED REC COMMENT (22:48)
[2022-12-25] MEDS ORDERED: HOME MED LIST COMPLETE! XX SCH (22:55)
[2022-12-26] MEDS ORDERED: VALPROIC ACID 250MG CAP PO SCH (09:00)
[2022-12-26] MEDS ORDERED: lamoTRIgine 25MG TAB PO SCH (09:00)
[2022-12-28] MEDS: lamoTRIgine 25MG TAB PO SCH (21:36)
[2022-12-28] MEDS: VALPROIC ACID 250MG CAP PO SCH (21:38)
[2022-12-29] MEDS: VALPROIC ACID 250MG CAP PO SCH ×2 (11:33→21:52)
[2022-12-29] MEDS: lamoTRIgine 25MG TAB PO SCH ×2 (11:33→21:52)
[2022-12-30] MEDS: lamoTRIgine 25MG TAB PO SCH ×2 (10:31→20:58)
[2022-12-30] MEDS: VALPROIC ACID 250MG CAP PO SCH ×2 (10:32→20:58)
[2022-12-31] MEDS: VALPROIC ACID 250MG CAP PO SCH ×2 (11:25→21:18)
[2022-12-31] MEDS: lamoTRIgine 25MG TAB PO SCH ×2 (11:25→21:18)
[2023-01-01] MEDS: VALPROIC ACID 250MG CAP PO SCH ×2 (08:50→20:25)
[2023-01-01] MEDS: lamoTRIgine 25MG TAB PO SCH ×2 (08:51→20:25)
[2023-01-01] MEDS ORDERED: diphenhydrAMINE 25MG CAP PO PRN (11:40)
[2023-01-01] MEDS ORDERED: ALBUTEROL 90 MCG/ACT 8GM HFA INHALER INH PRN (11:40)
[2023-01-01] MEDS ORDERED: MAALOX 30 ML SUSP *UDC PO PRN (11:40)
[2023-01-01] MEDS ORDERED: IBUPROFEN 400MG TAB PO PRN (11:40)
[2023-01-01] MEDS ORDERED: OLANZapine ORAL DISINTEGRATING TAB 5MG PO PRN (11:40)
[2023-01-01] MEDS ORDERED: MOM 30ML SUSPENSION UDC PO PRN (11:40)
[2023-01-01] MEDS: NICOTINE 21MG/24HR 1 EA TRANSDERMAL TD SCH (12:26)
[2023-01-01 17:31] VITALS: BP 137/75
[2023-01-01] MEDS: traZODone 50 MG TAB PO PRN (23:01)
[2023-01-02 06:22] VITALS: BP 141/60
[2023-01-02] MEDS: lamoTRIgine 25MG TAB PO SCH ×2 (09:43→19:55)
[2023-01-02] MEDS: NICOTINE 21MG/24HR 1 EA TRANSDERMAL TD SCH (09:43)
[2023-01-02] MEDS: VALPROIC ACID 250MG CAP PO SCH ×2 (09:45→19:55)
[2023-01-02 16:53] VITALS: BP 131/71
[2023-01-03 06:43] VITALS: BP 126/60
[2023-01-03 07:07] LABS: CHOLESTEROL RISK RATIO 4.54 (<5); HDL CHOLESTEROL 21.8 MG/DL (>40)
[2023-01-03] MEDS: VALPROIC ACID 250MG CAP PO SCH ×2 (09:57→20:09)
[2023-01-03] MEDS: lamoTRIgine 25MG TAB PO SCH ×2 (09:57→20:09)
[2023-01-03] MEDS: NICOTINE 21MG/24HR 1 EA TRANSDERMAL TD SCH (09:58)
[2023-01-03 16:24] VITALS: BP 148/70
[2023-01-03] MEDS: traZODone 50 MG TAB PO PRN (22:03)
[2023-01-04 06:15] VITALS: BP 126/63
[2023-01-04] MEDS: NICOTINE 21MG/24HR 1 EA TRANSDERMAL TD SCH (09:01)
[2023-01-04] MEDS: VALPROIC ACID 250MG CAP PO SCH (09:01)
[2023-01-04] MEDS: lamoTRIgine 25MG TAB PO SCH (09:01)
[2023-01-04] MEDS ORDERED: TRAZ-252 PO (09:28)
[2023-01-04] MEDS ORDERED: VALP1CAP2 PO (09:28)
[2023-01-04] MEDS ORDERED: NICO21PAT TD (09:28)
[2023-01-04] MEDS ORDERED: ABIL1TAB11 PO (09:28)
[2023-01-04] MEDS ORDERED: LAMO25TA4 PO (09:28)
== END 2023-01-04 15:07 | disposition home or self-care (01) | DRG 751 ==
LOC: M ED 18:13 → M ED INP 18:14 → UNDOADMIN 18:14 → M ED INP 01-01 11:40 → M PSY 01-01 15:18
PROVIDERS: ADMIT Student in an Organized Health Care Education/Training Program; ATTEND Student in an Organized Health Care Education/Training Program
DX: F29 Unspecified psychosis not due to a substance or known physiological condition (principal); G40.909 Epilepsy, unspecified, not intractable, without status epilepticus; R45.851 Suicidal ideations; F84.0 Autistic disorder; F60.89 Other specific personality disorders; F12.90 Cannabis use, unspecified, uncomplicated; J45.909 Unspecified asthma, uncomplicated; Z79.899 Other long term (current) drug therapy; Z20.822 Contact with and (suspected) exposure to COVID-19; Z91.013 Allergy to seafood; Z91.018 Allergy to other foods; Z91.030 Bee allergy status; Z91.52 Personal history of nonsuicidal self-harm

== ENCOUNTER 2023-01-09 17:54 | Emergency (ER) | payer OTHER ==
[~2023-01-09] VITALS: Ht 180.3 cm; Wt 121.3 kg
[~2023-01-09 17:54] MED LIST changes: +ABIL1TAB11 PO; +LAMO25TA4 PO; +MED REC COMMENT; +NICO21PAT TD; +TRAZ-252 PO
[2023-01-09] MEDS ORDERED: ASPIRIN 81MG CHEW TABLET As Ordered ONE (18:10)
[2023-01-09 18:29] LABS: BASO # 0.1 10^3/uL (0.0-0.2); BASO % 0.6 % (0.0-1.0); EOS # 0.3 10^3/uL (0.0-0.5); EOS % 3.3 % (0.0-3.0); HEMATOCRIT 43.9 % (42.0-52.0); LYMPH # 1.2 10^3/uL (1.5-5.0); LYMPH % 15.4 % (24.0-44.0); MEAN CORPUSCULAR HEMOGLOBIN 29.2 pg (27.0-33.0); MEAN CORPUSCULAR HGB CONC 31.9 g/dl (32.0-36.5); MEAN CORPUSCULAR VOLUME 91.6 fl (80.0-96.0); MONO # 1.1 10^3/uL (0.0-0.8); NEUTROPHILS # 5.3 10^3/uL (1.5-8.5); NEUTROPHILS % 66.6 % (36.0-66.0); PLATELET COUNT, AUTOMATED 224 10^3/uL (150-450); RED BLOOD COUNT 4.79 10^6/uL (4.30-6.10); WHITE BLOOD COUNT 7.9 10^3/uL (4.0-10.0)
[2023-01-09 18:53] LABS: LIPASE 25 U/L (12-53)
[2023-01-09 18:55] LABS: CPK CREATINE PHOSPHOKINASE 143 U/L (46-171)
[2023-01-09 18:59] LABS: ALBUMIN 3.7 G/DL (3.2-5.2); ALKALINE PHOSPHATASE 61 U/L (46-116); ALT/SGPT 30 U/L (7.0-40); AST/SGOT 22 U/L (<34); BILIRUBIN,DIRECT < 0.1 MG/DL (<0.4); BILIRUBIN,TOTAL 0.2 MG/DL (0.3-1.2); BLOOD UREA NITROGEN 10 MG/DL (9-23); CALCIUM LEVEL 9.1 MG/DL (8.5-10.1); CARBON DIOXIDE LEVEL 28 MMOL/L (20-31); CHLORIDE LEVEL 102 MMOL/L (98-107); CK-MB VALUE MASS < 1.0 NG/ML (<3.6); CREATININE FOR GFR 0.83 MG/DL (0.70-1.30); GLOMERULAR FILTRATION RATE > 60.0 (>60); GLUCOSE, FASTING 87 MG/DL (60-100); MB/CK RELATIVE INDEX 0.69 (< OR =4); POTASSIUM SERUM 4.8 MMOL/L (3.5-5.1); SODIUM LEVEL 136 MMOL/L (136-145); THYROID STIMULATING HORMONE 1.199 uIU/ML (0.55-4.78); TOTAL PROTEIN 6.8 G/DL (5.7-8.2)
[2023-01-09] MEDS ORDERED: ISOVUE-370 76% 100ML VIAL As Ordered ONE (19:43)
[2023-01-09 20:24] LABS: CK-MB VALUE MASS < 1.0 NG/ML (<3.6)
[2023-01-09 20:26] LABS: CPK CREATINE PHOSPHOKINASE 126 U/L (46-171); MB/CK RELATIVE INDEX 0.79 (< OR =4)
[2023-01-09 22:05] VITALS: BP 125/76
== END 2023-01-09 22:07 | disposition home or self-care (01) ==
LOC: EDBD 17:54 → M ED 17:54 → EDSEX 17:54 → M ED 22:07
DX: R07.9 Chest pain, unspecified (principal); R56.9 Unspecified convulsions; J45.909 Unspecified asthma, uncomplicated; F17.200 Nicotine dependence, unspecified, uncomplicated; R06.02 Shortness of breath; Z91.013 Allergy to seafood; Z91.030 Bee allergy status; Z91.018 Allergy to other foods; Z79.51 Long term (current) use of inhaled steroids; Z79.899 Other long term (current) drug therapy

== ENCOUNTER 2023-02-19 13:44 | Inpatient (IN) | payer OTHER ==
[~2023-02-19] VITALS: Ht 180.3 cm; Wt 122.6 kg
[2023-02-19 16:51] LABS: HEMATOCRIT 48.5 % (42.0-52.0); HEMOGLOBIN 16.1 g/dl (13.5-17.5); MEAN CORPUSCULAR HGB CONC 33.2 g/dl (32.0-36.5); MEAN CORPUSCULAR VOLUME 87.2 fl (80.0-96.0); PLATELET COUNT, AUTOMATED 347 10^3/uL (150-450); RED BLOOD COUNT 5.56 10^6/uL (4.30-6.10); WHITE BLOOD COUNT 7.7 10^3/uL (4.0-10.0)
[2023-02-19 17:15] LABS: AMPHETAMINES LEVEL URINE NEGATIVE (NEGATIVE); BARBITURATES URINE NEGATIVE (NEGATIVE); BENZODIAZEPINES URINE NEGATIVE (NEGATIVE); COCAINE METABOLITE URINE NEGATIVE (NEGATIVE); METHADONE URINE NEGATIVE (NEGATIVE); OPIATES URINE NEGATIVE (NEGATIVE); PHENCYCLIDINE URINE NEGATIVE (NEGATIVE)
[2023-02-19 17:19] LABS: CANNABINOIDS URINE POSITIVE (NEGATIVE)
[2023-02-19 17:30] LABS: ETHYL ALCOHOL (ETHANOL) < 0.003 % (0.000-0.010)
[2023-02-19 17:31] LABS: ACETAMINOPHEN LEVEL < 2.0 UG/ML (10.0-20.0)
[2023-02-19 17:32] LABS: SALICYLATE LEVEL < 3.0 MG/DL (<30)
[2023-02-19 17:34] LABS: VALPROIC ACID (DEPAKOTE) < 3.0 UG/ML (50.0-100.0)
[2023-02-19 17:35] LABS: ALBUMIN 4.3 G/DL (3.2-5.2); ALKALINE PHOSPHATASE 61 U/L (46-116); ALT/SGPT 51 U/L (7.0-40); AST/SGOT 22 U/L (<34); BILIRUBIN,DIRECT < 0.1 MG/DL (<0.4); BILIRUBIN,TOTAL 0.3 MG/DL (0.3-1.2); BLOOD UREA NITROGEN 12 MG/DL (9-23); CALCIUM LEVEL 10.2 MG/DL (8.5-10.1); CARBON DIOXIDE LEVEL 25 MMOL/L (20-31); CHLORIDE LEVEL 104 MMOL/L (98-107); CREATININE FOR GFR 0.68 MG/DL (0.70-1.30); GLOMERULAR FILTRATION RATE > 60.0 (>60); GLUCOSE, FASTING 87 MG/DL (60-100); POTASSIUM SERUM 4.9 MMOL/L (3.5-5.1); SODIUM LEVEL 136 MMOL/L (136-145); TOTAL PROTEIN 7.6 G/DL (5.7-8.2)
[2023-02-19] MEDS ORDERED: ACETAMINOPHEN TAB 650MG DOSE (2X325MG) PO PRN (20:15)
[2023-02-19] MEDS ORDERED: MAALOX 30 ML SUSP *UDC PO PRN (20:15)
[2023-02-19] MEDS ORDERED: traZODone 50 MG TAB PO PRN (20:15)
[2023-02-19] MEDS ORDERED: MOM 30ML SUSPENSION UDC PO PRN (20:15)
[2023-02-19] MEDS ORDERED: HOME MED LIST COMPLETE! XX SCH (20:30)
[2023-02-19] MEDS ORDERED: TRAZ-252 PO (20:30)
[2023-02-19] MEDS ORDERED: ALBUTEROL 90 MCG/ACT 8GM HFA INHALER INH PRN (20:35)
[2023-02-19] MEDS: VALPROIC ACID 250MG CAP PO SCH (22:33)
[2023-02-20 06:20] VITALS: BP 126/86
[2023-02-20] MEDS: VALPROIC ACID 250MG CAP PO SCH ×2 (09:23→20:30)
[2023-02-20 18:02] VITALS: BP 155/66
[2023-02-21 06:33] VITALS: BP 127/54
[2023-02-21] MEDS: VALPROIC ACID 250MG CAP PO SCH ×2 (09:05→20:17)
[2023-02-21 18:34] VITALS: BP 146/89
[2023-02-22 06:25] VITALS: BP 126/67
[2023-02-22] MEDS: VALPROIC ACID 250MG CAP PO SCH ×2 (09:38→20:48)
[2023-02-22 19:00] VITALS: BP 131/70
[2023-02-23 06:51] VITALS: BP 135/63
[2023-02-23] MEDS: VALPROIC ACID 250MG CAP PO SCH (08:03)
[2023-02-23] MEDS ORDERED: VALP1CAP2 PO ×2 (09:25→09:27)
[2023-02-23] MEDS ORDERED: ABIL1TAB11 PO (09:25)
[2023-02-23] MEDS ORDERED: TRAZ-252 PO (09:25)
== END 2023-02-23 13:32 | disposition home or self-care (01) | DRG 751 ==
LOC: M ED 13:44 → M ED INP 20:15 → M PSY 21:08
PROVIDERS: ADMIT Psychiatry & Neurology Psychiatry; ATTEND Psychiatry & Neurology Psychiatry
DX: F28 Other psychotic disorder not due to a substance or known physiological condition (principal); F12.90 Cannabis use, unspecified, uncomplicated; R45.851 Suicidal ideations; Z91.51 Personal history of suicidal behavior; Z91.52 Personal history of nonsuicidal self-harm; Z81.8 Family history of other mental and behavioral disorders; Z81.3 Family history of other psychoactive substance abuse and dependence; J45.909 Unspecified asthma, uncomplicated; R56.9 Unspecified convulsions; F17.200 Nicotine dependence, unspecified, uncomplicated; Z56.0 Unemployment, unspecified; E83.52 Hypercalcemia; Z79.899 Other long term (current) drug therapy; Z91.013 Allergy to seafood; Z91.018 Allergy to other foods; Z91.030 Bee allergy status

== ENCOUNTER 2023-02-23 19:31 | Emergency (ER) | payer OTHER ==
[~2023-02-23] VITALS: Ht 180.3 cm; Wt 122.7 kg
[2023-02-23 21:15] VITALS: BP 134/69
== END 2023-02-23 21:30 | disposition home or self-care (01) ==
LOC: M ED 19:31 → EDBD 19:31 → M ED 21:30
DX: F12.10 Cannabis abuse, uncomplicated (principal); J45.909 Unspecified asthma, uncomplicated; Z91.030 Bee allergy status; Z91.013 Allergy to seafood; Z91.018 Allergy to other foods; Z79.899 Other long term (current) drug therapy

== ENCOUNTER 2023-04-07 03:05 | Inpatient (IN) | payer OTHER ==
[~2023-04-07] VITALS: Ht 180.3 cm; Wt 124.9 kg
[~2023-04-07 03:05] MED LIST changes: +BENZ0.5T2 PO; -BENZ0.5T23 PO
[2023-04-07 04:04] LABS: HEMATOCRIT 40.2 % (42.0-52.0); HEMOGLOBIN 13.4 g/dl (13.5-17.5); MEAN CORPUSCULAR HEMOGLOBIN 29.7 pg (27.0-33.0); MEAN CORPUSCULAR HGB CONC 33.3 g/dl (32.0-36.5); MEAN CORPUSCULAR VOLUME 89.1 fl (80.0-96.0); PLATELET COUNT, AUTOMATED 280 10^3/uL (150-450); RED BLOOD COUNT 4.51 10^6/uL (4.30-6.10); WHITE BLOOD COUNT 11.2 10^3/uL (4.0-10.0)
[2023-04-07 04:23] LABS: AMPHETAMINES LEVEL URINE NEGATIVE (NEGATIVE); BARBITURATES URINE NEGATIVE (NEGATIVE); BENZODIAZEPINES URINE NEGATIVE (NEGATIVE); COCAINE METABOLITE URINE NEGATIVE (NEGATIVE); METHADONE URINE NEGATIVE (NEGATIVE); OPIATES URINE NEGATIVE (NEGATIVE); PHENCYCLIDINE URINE NEGATIVE (NEGATIVE)
[2023-04-07 04:25] LABS: CANNABINOIDS URINE POSITIVE (NEGATIVE); ETHYL ALCOHOL (ETHANOL) < 0.003 % (0.000-0.010)
[2023-04-07 04:26] LABS: ACETAMINOPHEN LEVEL < 2.0 UG/ML (10.0-20.0); SALICYLATE LEVEL < 3.0 MG/DL (<30)
[2023-04-07 04:27] LABS: ALBUMIN 3.3 G/DL (3.2-5.2); ALKALINE PHOSPHATASE 59 U/L (46-116); ALT/SGPT 27 U/L (7.0-40); AST/SGOT 20 U/L (<34); BILIRUBIN,DIRECT < 0.1 MG/DL (<0.4); BILIRUBIN,TOTAL 0.2 MG/DL (0.3-1.2); BLOOD UREA NITROGEN 13 MG/DL (9-23); CALCIUM LEVEL 8.5 MG/DL (8.5-10.1); CARBON DIOXIDE LEVEL 26 MMOL/L (20-31); CHLORIDE LEVEL 107 MMOL/L (98-107); CREATININE FOR GFR 0.88 MG/DL (0.70-1.30); GLOMERULAR FILTRATION RATE > 60.0 (>60); GLUCOSE, FASTING 102 MG/DL (60-100); POTASSIUM SERUM 4.2 MMOL/L (3.5-5.1); SODIUM LEVEL 139 MMOL/L (136-145); TOTAL PROTEIN 6.2 G/DL (5.7-8.2)
[2023-04-07 04:29] LABS: THYROID STIMULATING HORMONE 0.873 uIU/ML (0.55-4.78)
[2023-04-07] MEDS ORDERED: NICOTINE 21MG/24HR 1 EA TRANSDERMAL TD ONE (07:20)
[2023-04-07 08:42] LABS: VALPROIC ACID (DEPAKOTE) < 3.0 UG/ML (50.0-100.0)
[2023-04-07] MEDS: CEPHALEXIN 500 MG CAP PO SCH ×3 (09:00→21:41)
[2023-04-07] MEDS ORDERED: MOM 30ML SUSPENSION UDC PO PRN (17:15)
[2023-04-07] MEDS ORDERED: MAALOX 30 ML SUSP *UDC PO PRN (17:15)
[2023-04-07] MEDS ORDERED: traZODone 50 MG TAB PO PRN (17:15)
[2023-04-07] MEDS ORDERED: ACETAMINOPHEN TAB 650MG DOSE (2X325MG) PO PRN (17:15)
[2023-04-07] MEDS ORDERED: OLANZapine ORAL DISINTEGRATING TAB 5MG PO PRN (17:15)
[2023-04-07] MEDS ORDERED: ALBUTEROL 90 MCG/ACT 8GM HFA INHALER INH PRN (17:25)
[2023-04-07] MEDS ORDERED: TRAZ-186 PO (19:12)
[2023-04-07] MEDS ORDERED: ALBU8.5H INH (19:12)
[2023-04-07] MEDS ORDERED: ARIP10TA32 (19:12)
[2023-04-07] MEDS ORDERED: HOME MED LIST COMPLETE! XX SCH (19:15)
[2023-04-07 21:23] VITALS: BP 138/80
[2023-04-07] MEDS: VALPROIC ACID 250MG CAP PO SCH (21:57)
[2023-04-08 05:50] VITALS: BP 137/65
[2023-04-08] MEDS: CEPHALEXIN 500 MG CAP PO SCH ×3 (09:37→20:15)
[2023-04-08] MEDS: VALPROIC ACID 250MG CAP PO SCH ×2 (09:38→20:15)
[2023-04-08] MEDS ORDERED: PILL CUTTER 1 EACH XX PRN (11:40)
[2023-04-08] MEDS: ARIPiprazole 2 MG TAB PO SCH (20:15)
[2023-04-09 07:13] VITALS: BP 136/64
[2023-04-09] MEDS ORDERED: ARIP10TA32 PO (07:24)
[2023-04-09] MEDS ORDERED: VALP1CAP2 PO (07:24)
[2023-04-09 07:36] LABS: VALPROIC ACID (DEPAKOTE) 75.6 UG/ML (50.0-100.0)
[2023-04-09 07:37] LABS: CHOLESTEROL RISK RATIO 3.94 (<5); HDL CHOLESTEROL 29.9 MG/DL (>40); LDL CHOLESTEROL 43.5 MG/DL (<100); NON-HDL-C 88.1 MG/DL
[2023-04-09] MEDS: CEPHALEXIN 500 MG CAP PO SCH (08:44)
[2023-04-09] MEDS: VALPROIC ACID 250MG CAP PO SCH (08:45)
[2023-04-09] MEDS: ARIPiprazole 2 MG TAB PO SCH (08:47)
== END 2023-04-09 12:42 | disposition home or self-care (01) | DRG 751 ==
LOC: M ED 03:05 → M ED INP 17:14 → M PSY 21:11
PROVIDERS: ADMIT Student in an Organized Health Care Education/Training Program; ATTEND Student in an Organized Health Care Education/Training Program
DX: F29 Unspecified psychosis not due to a substance or known physiological condition (principal); F79 Unspecified intellectual disabilities; R45.851 Suicidal ideations; G40.909 Epilepsy, unspecified, not intractable, without status epilepticus; F84.0 Autistic disorder; F12.19 Cannabis abuse with unspecified cannabis-induced disorder; Z91.52 Personal history of nonsuicidal self-harm; J45.909 Unspecified asthma, uncomplicated; Z91.013 Allergy to seafood; Z91.030 Bee allergy status; Z91.018 Allergy to other foods; Z79.899 Other long term (current) drug therapy; Z20.822 Contact with and (suspected) exposure to COVID-19; Z63.8 Other specified problems related to primary support group; Z56.0 Unemployment, unspecified

== ENCOUNTER 2023-04-12 00:23 | Emergency (ER) | payer OTHER ==
[~2023-04-12] VITALS: Ht 180.3 cm; Wt 123.4 kg
[~2023-04-12 00:23] MED LIST changes: +ALBU8.5H INH; +ARIP10TA32; +ARIP10TA32 PO; +TRAZ-186 PO
[2023-04-12 01:04] LABS: HEMATOCRIT 42.1 % (42.0-52.0); HEMOGLOBIN 14.2 g/dl (13.5-17.5); MEAN CORPUSCULAR HGB CONC 33.7 g/dl (32.0-36.5); PLATELET COUNT, AUTOMATED 279 10^3/uL (150-450); RED BLOOD COUNT 4.73 10^6/uL (4.30-6.10); WHITE BLOOD COUNT 7.8 10^3/uL (4.0-10.0)
[2023-04-12 01:27] LABS: AMPHETAMINES LEVEL URINE NEGATIVE (NEGATIVE); BARBITURATES URINE NEGATIVE (NEGATIVE); BENZODIAZEPINES URINE NEGATIVE (NEGATIVE); COCAINE METABOLITE URINE NEGATIVE (NEGATIVE); METHADONE URINE NEGATIVE (NEGATIVE); OPIATES URINE NEGATIVE (NEGATIVE); PHENCYCLIDINE URINE NEGATIVE (NEGATIVE)
[2023-04-12 01:30] LABS: ETHYL ALCOHOL (ETHANOL) < 0.003 % (0.000-0.010)
[2023-04-12 01:31] LABS: ACETAMINOPHEN LEVEL < 2.0 UG/ML (10.0-20.0); SALICYLATE LEVEL < 3.0 MG/DL (<30)
[2023-04-12 01:32] LABS: ALBUMIN 3.9 G/DL (3.2-5.2); ALKALINE PHOSPHATASE 59 U/L (46-116); ALT/SGPT 26 U/L (7.0-40); AST/SGOT 21 U/L (<34); BILIRUBIN,DIRECT < 0.1 MG/DL (<0.4); BILIRUBIN,TOTAL 0.2 MG/DL (0.3-1.2); BLOOD UREA NITROGEN 14 MG/DL (9-23); CALCIUM LEVEL 9.1 MG/DL (8.5-10.1); CARBON DIOXIDE LEVEL 26 MMOL/L (20-31); CHLORIDE LEVEL 104 MMOL/L (98-107); CREATININE FOR GFR 0.79 MG/DL (0.70-1.30); GLOMERULAR FILTRATION RATE > 60.0 (>60); GLUCOSE, FASTING 102 MG/DL (60-100); SODIUM LEVEL 137 MMOL/L (136-145); TOTAL PROTEIN 6.7 G/DL (5.7-8.2)
[2023-04-12 01:33] LABS: CANNABINOIDS URINE POSITIVE (NEGATIVE)
[2023-04-12 01:34] LABS: THYROID STIMULATING HORMONE 1.568 uIU/ML (0.55-4.78)
[2023-04-12] MEDS ORDERED: ARIP1TAB PO (11:47)
[2023-04-12] MEDS ORDERED: VALP1CAP2 PO (11:47)
[2023-04-12] MEDS ORDERED: HOME MED LIST COMPLETE! XX SCH (11:50)
[2023-04-12 12:57] VITALS: BP 124/77
== END 2023-04-12 21:10 | disposition home or self-care (01) ==
LOC: M ED 00:23
DX: F20.9 Schizophrenia, unspecified (principal); Z59.00 Homelessness unspecified; R45.851 Suicidal ideations; F41.9 Anxiety disorder, unspecified; F17.200 Nicotine dependence, unspecified, uncomplicated; F12.10 Cannabis abuse, uncomplicated; F10.10 Alcohol abuse, uncomplicated; Z91.013 Allergy to seafood; Z91.030 Bee allergy status; Z79.52 Long term (current) use of systemic steroids; Z79.899 Other long term (current) drug therapy

== ENCOUNTER 2023-05-10 03:04 | Emergency (ER) | payer OTHER ==
[~2023-05-10 03:04] MED LIST changes: +ARIP1TAB PO
[2023-05-10 04:08] LABS: HEMATOCRIT 42.3 % (42.0-52.0); HEMOGLOBIN 13.9 g/dl (13.5-17.5); MEAN CORPUSCULAR HEMOGLOBIN 29.3 pg (27.0-33.0); MEAN CORPUSCULAR HGB CONC 32.9 g/dl (32.0-36.5); MEAN CORPUSCULAR VOLUME 89.2 fl (80.0-96.0); PLATELET COUNT, AUTOMATED 250 10^3/uL (150-450); RED BLOOD COUNT 4.74 10^6/uL (4.30-6.10); WHITE BLOOD COUNT 8.1 10^3/uL (4.0-10.0)
[2023-05-10 04:33] LABS: ETHYL ALCOHOL (ETHANOL) < 0.003 % (0.000-0.010)
[2023-05-10 04:35] LABS: ACETAMINOPHEN LEVEL < 2.0 UG/ML (10.0-20.0); SALICYLATE LEVEL < 3.0 MG/DL (<30)
[2023-05-10 04:37] LABS: THYROID STIMULATING HORMONE 1.009 uIU/ML (0.55-4.78)
[2023-05-10 04:54] LABS: ALBUMIN 3.6 G/DL (3.2-5.2); ALKALINE PHOSPHATASE 56 U/L (46-116); ALT/SGPT 25 U/L (7.0-40); AST/SGOT 13 U/L (<34); BILIRUBIN,DIRECT < 0.1 MG/DL (<0.4); BILIRUBIN,TOTAL 0.2 MG/DL (0.3-1.2); BLOOD UREA NITROGEN 11 MG/DL (9-23); CALCIUM LEVEL 8.6 MG/DL (8.5-10.1); CARBON DIOXIDE LEVEL 27 MMOL/L (20-31); CHLORIDE LEVEL 106 MMOL/L (98-107); CREATININE FOR GFR 1.08 MG/DL (0.70-1.30); GLOMERULAR FILTRATION RATE > 60.0 (>60); GLUCOSE, FASTING 96 MG/DL (60-100); POTASSIUM SERUM 3.7 MMOL/L (3.5-5.1); SODIUM LEVEL 140 MMOL/L (136-145); TOTAL PROTEIN 6.4 G/DL (5.7-8.2)
[2023-05-10 07:58] LABS: VALPROIC ACID (DEPAKOTE) < 3.0 UG/ML (50.0-100.0)
[2023-05-10] MEDS ORDERED: ARIPiprazole 10 MG TAB PO ONE (13:10)
[2023-05-10] MEDS ORDERED: DIVALPROEX 250MG TAB PO ONE (13:10)
[2023-05-10 13:58] VITALS: BP 146/80; TEMP 97.8; O2SAT 99
== END 2023-05-10 14:42 | disposition home or self-care (01) ==
LOC: M ED 03:04
DX: F43.9 Reaction to severe stress, unspecified (principal); F17.200 Nicotine dependence, unspecified, uncomplicated; F12.90 Cannabis use, unspecified, uncomplicated

== ENCOUNTER 2023-07-21 21:02 | Emergency (ER) | payer MEDICAID, OTHER ==
[~2023-07-21] VITALS: Ht 180.3 cm; Wt 120.1 kg
[~2023-07-21 21:02] MED LIST changes: +ARIP1TAB6 PO; +NICO14PA TD
[2023-07-21 21:32] LABS: BASO # 0.1 10^3/uL (0.0-0.2); BASO % 0.5 % (0.0-1.0); EOS # 0.3 10^3/uL (0.0-0.5); EOS % 3.7 % (0.0-3.0); HEMATOCRIT 44.1 % (42.0-52.0); HEMOGLOBIN 14.6 g/dl (13.5-17.5); LYMPH # 1.8 10^3/uL (1.5-5.0); MEAN CORPUSCULAR HEMOGLOBIN 29.1 pg (27.0-33.0); MEAN CORPUSCULAR HGB CONC 33.1 g/dl (32.0-36.5); MONO % 10.8 % (2.0-8.0); NEUTROPHILS # 5.9 10^3/uL (1.5-8.5); NEUTROPHILS % 64.7 % (36.0-66.0); PLATELET COUNT, AUTOMATED 296 10^3/uL (150-450); RED BLOOD COUNT 5.01 10^6/uL (4.30-6.10); WHITE BLOOD COUNT 9.2 10^3/uL (4.0-10.0)
[2023-07-21 21:40] LABS: VENOUS BASE EXCESS -4.4 (-2.0-2.0); VENOUS HCO3 19.6 MMOL/L (23.0-27.0); VENOUS O2 SATURATION 93.1 % (60.0-80.0); VENOUS PARTIAL PRESSURE CO2 33.5 mmHg (38.0-50.0); VENOUS PARTIAL PRESSURE O2 64.9 mmHg (30.0-50.0); VENOUS PH 7.385 UNITS (7.330-7.430); VENOUS STANDARD HCO3 20.8 MMOL/L; VENOUS TOTAL CO2 20.6 MMOL/L (24.0-28.0)
[2023-07-21 21:42] LABS: IONIZED CALCIUM 4.8 MG/DL (4.5-5.3)
[2023-07-21 21:52] LABS: ETHYL ALCOHOL (ETHANOL) < 0.003 % (0.000-0.010)
[2023-07-21] MEDS ORDERED: NS 1,000 ML IV ONE (22:10)
[2023-07-21 22:13] LABS: ALBUMIN 3.9 G/DL (3.2-5.2); ALKALINE PHOSPHATASE 56 U/L (46-116); ALT/SGPT 22 U/L (7.0-40); AST/SGOT 15 U/L (<34); BILIRUBIN,DIRECT < 0.1 MG/DL (<0.4); BILIRUBIN,TOTAL 0.3 MG/DL (0.3-1.2); BLOOD UREA NITROGEN 13 MG/DL (9-23); CALCIUM LEVEL 9.5 MG/DL (8.5-10.1); CARBON DIOXIDE LEVEL 20 MMOL/L (20-31); CHLORIDE LEVEL 107 MMOL/L (98-107); CREATININE FOR GFR 0.84 MG/DL (0.70-1.30); GLOMERULAR FILTRATION RATE > 60.0 (>60); GLUCOSE, FASTING 77 MG/DL (60-100); POTASSIUM SERUM 3.9 MMOL/L (3.5-5.1); SODIUM LEVEL 141 MMOL/L (136-145); TOTAL PROTEIN 7.1 G/DL (5.7-8.2)
[2023-07-21 22:15] LABS: AMPHETAMINES LEVEL URINE NEGATIVE (NEGATIVE); BENZODIAZEPINES URINE NEGATIVE (NEGATIVE)
[2023-07-21 22:16] LABS: BARBITURATES URINE NEGATIVE (NEGATIVE); COCAINE METABOLITE URINE NEGATIVE (NEGATIVE); METHADONE URINE NEGATIVE (NEGATIVE); OPIATES URINE NEGATIVE (NEGATIVE); PHENCYCLIDINE URINE NEGATIVE (NEGATIVE)
[2023-07-21 22:22] LABS: CANNABINOIDS URINE POSITIVE (NEGATIVE)
[2023-07-21 23:22] LABS: VALPROIC ACID (DEPAKOTE) < 3.0 UG/ML (50.0-100.0)
[2023-07-22] MEDS ORDERED: VALPROATE SOD INJ 1,000 MG in D5W 50 ML IV ONE ×2
[2023-07-22 01:34] VITALS: BP 114/67; TEMP 98; O2SAT 98
== END 2023-07-22 02:12 | disposition home or self-care (01) ==
LOC: M ED 21:02
DX: G40.909 Epilepsy, unspecified, not intractable, without status epilepticus (principal); B34.0 Adenovirus infection, unspecified; F17.200 Nicotine dependence, unspecified, uncomplicated; F12.10 Cannabis abuse, uncomplicated; Z91.030 Bee allergy status; Z91.018 Allergy to other foods; Z79.899 Other long term (current) drug therapy; Z79.83 Long term (current) use of bisphosphonates

== ENCOUNTER 2023-07-24 15:14 | Emergency (ER) | payer MEDICAID ==
[~2023-07-24] VITALS: Ht 180.3 cm; Wt 116.4 kg
[2023-07-24] MEDS ORDERED: AMOX500C PO (17:13)
[2023-07-24] MEDS ORDERED: POLYSOL OS (17:13)
[2023-07-24 17:22] VITALS: BP 122/65; TEMP 98.2; O2SAT 99
== END 2023-07-24 17:24 | disposition home or self-care (01) ==
LOC: M ED 15:14
DX: J02.0 Streptococcal pharyngitis (principal); H10.32 Unspecified acute conjunctivitis, left eye; Z91.018 Allergy to other foods; Z91.013 Allergy to seafood; Z91.030 Bee allergy status; F41.9 Anxiety disorder, unspecified; F32.A Depression, unspecified; F20.9 Schizophrenia, unspecified

== ENCOUNTER 2023-09-18 20:20 | Inpatient (IN) | payer MEDICAID, OTHER ==
[~2023-09-18] VITALS: Ht 180.3 cm; Wt 118.7 kg
[~2023-09-18 20:20] MED LIST changes: +ABIL10TA9 PO; +AMOX500C PO; +DEPA250T32 PO; +POLY2.5S OS; +POLYSOL OS
[2023-09-18 20:57] LABS: HEMOGLOBIN 14.4 g/dl (13.5-17.5); MEAN CORPUSCULAR HGB CONC 34.3 g/dl (32.0-36.5); MEAN CORPUSCULAR VOLUME 87.5 fl (80.0-96.0); PLATELET COUNT, AUTOMATED 283 10^3/uL (150-450); WHITE BLOOD COUNT 8.2 10^3/uL (4.0-10.0)
[2023-09-18] MEDS ORDERED: ARIP10TA32 PO (21:07)
[2023-09-18] MEDS ORDERED: DIVA500T94 PO (21:07)
[2023-09-18] MEDS ORDERED: DIVA250T67 PO (21:07)
[2023-09-18] MEDS ORDERED: TRAZ1TAB10 PO (21:07)
[2023-09-18] MEDS ORDERED: HOME MED LIST COMPLETE! XX SCH (21:10)
[2023-09-19] MEDS ORDERED: traZODone 50 MG TAB PO PRN (01:05)
[2023-09-19] MEDS ORDERED: MOM 30ML SUSPENSION UDC PO PRN (01:05)
[2023-09-19] MEDS ORDERED: ACETAMINOPHEN TAB 650MG DOSE (2X325MG) PO PRN (01:05)
[2023-09-19] MEDS ORDERED: diphenhydrAMINE 25MG CAP PO PRN (01:05)
[2023-09-19] MEDS ORDERED: OLANZapine ORAL DISINTEGRATING TAB 5MG PO PRN (01:05)
[2023-09-19] MEDS ORDERED: IBUPROFEN 400MG TAB PO PRN (01:05)
[2023-09-19] MEDS ORDERED: MAALOX 30 ML SUSP *UDC PO PRN (01:05)
[2023-09-19 03:00] VITALS: BP 121/76; TEMP 97.6; O2SAT 97
[2023-09-19 12:07] LABS: AMPHETAMINES LEVEL URINE NEGATIVE (NEGATIVE); BARBITURATES URINE NEGATIVE (NEGATIVE)
[2023-09-19 12:08] LABS: BENZODIAZEPINES URINE NEGATIVE (NEGATIVE); CANNABINOIDS URINE POSITIVE (NEGATIVE); COCAINE METABOLITE URINE NEGATIVE (NEGATIVE); OPIATES URINE NEGATIVE (NEGATIVE); PHENCYCLIDINE URINE NEGATIVE (NEGATIVE)
[2023-09-19 12:35] LABS: BLOOD UREA NITROGEN 13 MG/DL (7-21); CHLORIDE LEVEL 101 MEQ/L (98-107); CREATININE FOR GFR 0.7 MG/DL (0.7-1.5); GLOMERULAR FILTRATION RATE > 60.0 (>60); GLUCOSE, FASTING 106 MG/DL (70-99); POTASSIUM SERUM 3.9 MEQ/L (3.6-5.0); SODIUM LEVEL 138 MEQ/L (134-153)
[2023-09-19 12:36] LABS: ALBUMIN 4.1 G/DL (3.9-5.0); ALKALINE PHOSPHATASE 57 U/L (40-129); ALT/SGPT 18 U/L (1-41); AST/SGOT 16 U/L (5-40); BILIRUBIN,DIRECT < 0.2 MG/DL (0.1-0.4); BILIRUBIN,TOTAL < 0.7 MG/DL (0.2-1.3); CALCIUM LEVEL 9.6 MG/DL (8.4-10.2); CARBON DIOXIDE LEVEL 24 MEQ/L (22-30); ETHYL ALCOHOL (ETHANOL) < 0.00 % (0.00-0.01); TOTAL PROTEIN 7.2 G/DL (6.3-8.2)
[2023-09-19 12:37] LABS: SALICYLATE LEVEL < 3.0 MG/DL (2.0-20.0); THYROID STIMULATING HORMONE 1.64 UIU/ML (0.47-5.01)
[2023-09-19 15:11] VITALS: BP 142/70; TEMP 97.6; O2SAT 97
[2023-09-19 18:33] VITALS: BP 142/70; TEMP 97.6; O2SAT 98
[2023-09-19] MEDS ORDERED: DIVALPROEX 250MG TAB PO SCH (21:00)
[2023-09-20 06:08] VITALS: BP 125/64; TEMP 98; O2SAT 99
[2023-09-20] MEDS ORDERED: TRAZ-252 PO (17:57)
== END 2023-09-20 14:25 | disposition home or self-care (01) | DRG 750 ==
LOC: M ED 20:20 → M ED INP 09-19 01:01 → M PSY 09-19 02:34
PROVIDERS: ADMIT Student in an Organized Health Care Education/Training Program; ATTEND Student in an Organized Health Care Education/Training Program
DX: F20.9 Schizophrenia, unspecified (principal); F84.0 Autistic disorder; F10.10 Alcohol abuse, uncomplicated; F12.10 Cannabis abuse, uncomplicated; F79 Unspecified intellectual disabilities; R45.851 Suicidal ideations; J45.20 Mild intermittent asthma, uncomplicated; G40.909 Epilepsy, unspecified, not intractable, without status epilepticus; E66.9 Obesity, unspecified; F43.20 Adjustment disorder, unspecified; Z81.8 Family history of other mental and behavioral disorders; Z83.3 Family history of diabetes mellitus; F17.290 Nicotine dependence, other tobacco product, uncomplicated; Z56.0 Unemployment, unspecified; Z79.899 Other long term (current) drug therapy; Z91.013 Allergy to seafood; Z91.030 Bee allergy status; Z91.018 Allergy to other foods; Z20.822 Contact with and (suspected) exposure to COVID-19

== ENCOUNTER 2024-04-06 16:25 | Emergency (ER) | payer MEDICAID, OTHER ==
[~2024-04-06] VITALS: Ht 180.3 cm; Wt 110.0 kg
[~2024-04-06 16:25] MED LIST changes: +DIVA250T67 PO; +DIVA500T94 PO; +TRAZ1TAB10 PO
[2024-04-06 17:53] LABS: BASO # 0.1 10^3/uL (0.0-0.2); BASO % 0.8 % (0.0-1.0); EOS # 0.5 10^3/uL (0.0-0.5); EOS % 6.3 % (0.0-3.0); HEMATOCRIT 44.2 % (42.0-52.0); HEMOGLOBIN 14.8 g/dl (13.5-17.5); LYMPH # 1.8 10^3/uL (1.5-5.0); LYMPH % 25.4 % (24.0-44.0); MEAN CORPUSCULAR HEMOGLOBIN 29.7 pg (27.0-33.0); MEAN CORPUSCULAR HGB CONC 33.5 g/dl (32.0-36.5); MEAN CORPUSCULAR VOLUME 88.8 fl (80.0-96.0); MONO # 0.8 10^3/uL (0.0-0.8); NEUTROPHILS % 56.4 % (36.0-66.0); PLATELET COUNT, AUTOMATED 265 10^3/uL (150-450); RED BLOOD COUNT 4.98 10^6/uL (4.30-6.10); WHITE BLOOD COUNT 7.1 10^3/uL (4.0-10.0)
[2024-04-06 18:05] LABS: INR 1.07; PROTHROMBIN TIME 13.6 SECONDS (12.5-14.5)
[2024-04-06 18:23] LABS: CK-MB VALUE MASS < 1.0 NG/ML (<3.6)
[2024-04-06 18:24] LABS: LIPASE 29 U/L (12-53)
[2024-04-06 18:26] LABS: ALBUMIN 3.3 G/DL (3.2-5.2); ALKALINE PHOSPHATASE 62 U/L (46-116); ALT/SGPT 15 U/L (7.0-40); AST/SGOT 11 U/L (<34); BILIRUBIN,DIRECT < 0.1 MG/DL (<0.4); BILIRUBIN,TOTAL < 0.2 MG/DL (0.3-1.2); BLOOD UREA NITROGEN 12 MG/DL (9-23); CALCIUM LEVEL 8.9 MG/DL (8.5-10.1); CARBON DIOXIDE LEVEL 30 MMOL/L (20-31); CHLORIDE LEVEL 107 MMOL/L (98-107); CREATININE FOR GFR 0.87 MG/DL (0.70-1.30); GLOMERULAR FILTRATION RATE > 60.0 (>60); GLUCOSE, FASTING 80 MG/DL (60-100); POTASSIUM SERUM 4.5 MMOL/L (3.5-5.1); SODIUM LEVEL 140 MMOL/L (136-145); THYROID STIMULATING HORMONE 2.239 uIU/ML (0.55-4.78); TOTAL PROTEIN 6.8 G/DL (5.7-8.2)
[2024-04-06 18:31] LABS: CPK CREATINE PHOSPHOKINASE 126 U/L (46-171); MB/CK RELATIVE INDEX 0.79 (< OR =4)
[2024-04-06 18:33] LABS: AMPHETAMINES LEVEL URINE NEGATIVE (NEGATIVE); BARBITURATES URINE NEGATIVE (NEGATIVE); BENZODIAZEPINES URINE NEGATIVE (NEGATIVE); COCAINE METABOLITE URINE NEGATIVE (NEGATIVE); METHADONE URINE NEGATIVE (NEGATIVE); OPIATES URINE NEGATIVE (NEGATIVE); PHENCYCLIDINE URINE NEGATIVE (NEGATIVE)
[2024-04-06 18:43] LABS: CANNABINOIDS URINE POSITIVE (NEGATIVE)
[2024-04-06 20:53] LABS: ETHYL ALCOHOL (ETHANOL) < 0.003 % (0.000-0.010)
[2024-04-06 20:54] LABS: SALICYLATE LEVEL < 3.0 MG/DL (<30)
[2024-04-06 20:57] LABS: CK-MB VALUE MASS < 1.0 NG/ML (<3.6); CPK CREATINE PHOSPHOKINASE 146 U/L (46-171); MB/CK RELATIVE INDEX 0.68 (< OR =4)
[2024-04-07] MEDS ORDERED: HOME MED LIST COMPLETE! XX SCH (01:00)
[2024-04-07 11:05] VITALS: BP 121/69; TEMP 97.7; O2SAT 98
== END 2024-04-07 11:08 ==
LOC: M ED 16:25 → EDBD 16:25 → M ED 04-07 11:08
DX: R45.851 Suicidal ideations (principal); F20.9 Schizophrenia, unspecified; F17.210 Nicotine dependence, cigarettes, uncomplicated; F12.10 Cannabis abuse, uncomplicated; F10.10 Alcohol abuse, uncomplicated; Z91.013 Allergy to seafood; Z91.030 Bee allergy status; Z91.018 Allergy to other foods; Z79.899 Other long term (current) drug therapy

== ENCOUNTER 2024-04-14 10:52 | Emergency (ER) | payer OTHER ==
[~2024-04-14] VITALS: Ht 180.3 cm; Wt 118.2 kg
[2024-04-14] MEDS ORDERED: ABIL1INJ IM (11:20)
[2024-04-14 12:07] LABS: HEMATOCRIT 47.2 % (42.0-52.0); HEMOGLOBIN 15.8 g/dl (13.5-17.5); MEAN CORPUSCULAR HEMOGLOBIN 29.4 pg (27.0-33.0); MEAN CORPUSCULAR HGB CONC 33.5 g/dl (32.0-36.5); MEAN CORPUSCULAR VOLUME 87.9 fl (80.0-96.0); PLATELET COUNT, AUTOMATED 266 10^3/uL (150-450); RED BLOOD COUNT 5.37 10^6/uL (4.30-6.10); WHITE BLOOD COUNT 6.5 10^3/uL (4.0-10.0)
[2024-04-14 12:29] LABS: ETHYL ALCOHOL (ETHANOL) < 0.003 % (0.000-0.010)
[2024-04-14 12:32] LABS: ALKALINE PHOSPHATASE 76 U/L (46-116); ALT/SGPT 24 U/L (7.0-40); AST/SGOT 19 U/L (<34); BILIRUBIN,DIRECT < 0.1 MG/DL (<0.4); BILIRUBIN,TOTAL 0.2 MG/DL (0.3-1.2); BLOOD UREA NITROGEN 15 MG/DL (9-23); CALCIUM LEVEL 9.4 MG/DL (8.5-10.1); CARBON DIOXIDE LEVEL 27 MMOL/L (20-31); CHLORIDE LEVEL 106 MMOL/L (98-107); CREATININE FOR GFR 0.76 MG/DL (0.70-1.30); GLOMERULAR FILTRATION RATE > 60.0 (>60); GLUCOSE, FASTING 87 MG/DL (60-100); POTASSIUM SERUM 4.9 MMOL/L (3.5-5.1); SALICYLATE LEVEL < 3.0 MG/DL (<30); SODIUM LEVEL 138 MMOL/L (136-145); TOTAL PROTEIN 7.3 G/DL (5.7-8.2)
[2024-04-14 12:33] LABS: THYROID STIMULATING HORMONE 0.933 uIU/ML (0.55-4.78)
[2024-04-14 12:40] LABS: AMPHETAMINES LEVEL URINE NEGATIVE (NEGATIVE); BARBITURATES URINE NEGATIVE (NEGATIVE); BENZODIAZEPINES URINE NEGATIVE (NEGATIVE); COCAINE METABOLITE URINE NEGATIVE (NEGATIVE); METHADONE URINE NEGATIVE (NEGATIVE); OPIATES URINE NEGATIVE (NEGATIVE); PHENCYCLIDINE URINE NEGATIVE (NEGATIVE)
[2024-04-14 12:46] LABS: CANNABINOIDS URINE POSITIVE (NEGATIVE)
[2024-04-14 15:41] VITALS: BP 120/69; TEMP 96.9; O2SAT 97
== END 2024-04-14 16:10 | disposition home or self-care (01) ==
LOC: EDBD 10:52 → M ED 10:52
DX: F20.9 Schizophrenia, unspecified (principal); Z76.5 Malingerer [conscious simulation]; J45.909 Unspecified asthma, uncomplicated; G40.89 Other seizures; F17.210 Nicotine dependence, cigarettes, uncomplicated; F12.10 Cannabis abuse, uncomplicated; F10.10 Alcohol abuse, uncomplicated; Z91.013 Allergy to seafood; Z91.030 Bee allergy status; Z91.018 Allergy to other foods; Z79.899 Other long term (current) drug therapy

== ENCOUNTER → 2024-05-03 | Outpatient (CLI) | payer MEDICARE, OTHER ==
[~2024-05-03] MED LIST changes: +ABIL1INJ IM
== END ==
LOC: M SOG 07:57
PROVIDERS: ATTEND Physician Assistant
DX: M25.511 Pain in right shoulder (principal)

== ENCOUNTER 2024-05-27 12:27 | Emergency (ER) | payer MEDICARE, OTHER ==
[~2024-05-27] VITALS: Ht 180.3 cm; Wt 108.9 kg
[2024-05-27 12:27] VITALS: BP 147/77; TEMP 97.3; O2SAT 100
[2024-05-27] MEDS ORDERED: ARIP10TA32 (12:34)
[2024-05-27] MEDS ORDERED: ABIL10TA9 PO (12:58)
== END 2024-05-27 13:01 | disposition home or self-care (01) ==
LOC: M ED 12:27
DX: Z76.0 Encounter for issue of repeat prescription (principal); F31.9 Bipolar disorder, unspecified; G40.89 Other seizures; F41.9 Anxiety disorder, unspecified; F17.210 Nicotine dependence, cigarettes, uncomplicated; F12.10 Cannabis abuse, uncomplicated; Z91.013 Allergy to seafood; Z91.018 Allergy to other foods; Z79.899 Other long term (current) drug therapy

== ENCOUNTER 2024-06-17 09:01 | Emergency (ER) | payer MEDICARE, OTHER ==
[~2024-06-17] VITALS: Ht 180.3 cm; Wt 106.9 kg
[2024-06-17] MEDS ORDERED: DEPA250T32 PO ×2 (09:52→10:05)
[2024-06-17] MEDS ORDERED: ABIL10TA9 PO (10:05)
[2024-06-17 10:20] VITALS: BP 135/68; TEMP 96.1; O2SAT 97
== END 2024-06-17 10:23 | disposition home or self-care (01) ==
LOC: M ED 09:01
DX: Z76.0 Encounter for issue of repeat prescription (principal); J45.909 Unspecified asthma, uncomplicated; F20.9 Schizophrenia, unspecified; F12.10 Cannabis abuse, uncomplicated; Z91.013 Allergy to seafood; Z91.018 Allergy to other foods; Z91.030 Bee allergy status; Z79.899 Other long term (current) drug therapy

== ENCOUNTER → 2025-02-08 | Outpatient (REF) | payer MEDICARE, OTHER ==
[~2025-02-08] MED LIST changes: -ARIP10TA32; -ARIP10TA32 PO; +ARIP10TA63; +ARIP10TA63 PO
== END ==
LOC: M LAB REF 19:52
PROVIDERS: ATTEND Physician Assistant
DX: B34.9 Viral infection, unspecified (principal)

== ENCOUNTER 2025-02-14 09:10 | Emergency (ER) | payer MEDICAID, OTHER ==
[2025-02-14 09:13] VITALS: BP 130/76; TEMP 97.3; O2SAT 100
== END 2025-02-14 10:12 | disposition home or self-care (01) ==
LOC: M ED 09:10
DX: Z76.0 Encounter for issue of repeat prescription (principal); F20.9 Schizophrenia, unspecified; F17.210 Nicotine dependence, cigarettes, uncomplicated; Z91.030 Bee allergy status; Z91.013 Allergy to seafood; Z91.018 Allergy to other foods; Z79.899 Other long term (current) drug therapy

== ENCOUNTER → 2025-06-28 | Outpatient (CLI) | payer OTHER ==
[~2025-06-28] MED LIST changes: -DEPA250T32 PO; +DIVA-41 PO; +DIVA-65 PO; -DIVA500T94 PO; +LAMO-18 PO; -LAMO25TA4 PO
[2025-06-28 12:15] LABS: PLATELET COUNT, AUTOMATED 297 10^3/uL (150-450)
[2025-06-28 12:47] LABS: ALT/SGPT 27 U/L (7.0-40); AST/SGOT 22 U/L (<34); CALCIUM LEVEL 9.2 MG/DL (8.5-10.1); CARBON DIOXIDE LEVEL 30 MMOL/L (20-31); CHLORIDE LEVEL 104 MMOL/L (98-107); CHOLESTEROL LEVEL 117 MG/DL (<200); CHOLESTEROL RISK RATIO 3.42 (<5); CREATININE FOR GFR 0.91 MG/DL (0.70-1.30); GLOMERULAR FILTRATION RATE > 90.0 (>60); LDL CHOLESTEROL 59.6 MG/DL (<100); NON-HDL-C 82.8 MG/DL; POTASSIUM SERUM 4.8 MMOL/L (3.5-5.1); SODIUM LEVEL 142 MMOL/L (136-145); TRIGLYCERIDES LEVEL 116 MG/DL (<150)
[2025-06-28 13:03] LABS: ESTIMATED AVERAGE GLUCOSE 105.0 MG/DL (60-110)
== END ==
LOC: M LAB 11:03
DX: F33.9 Major depressive disorder, recurrent, unspecified (principal)

== ENCOUNTER 2025-07-06 22:55 | Emergency (ER) | payer MEDICARE, MEDICAID ==
[~2025-07-06] VITALS: Ht 180.3 cm; Wt 118.0 kg
[2025-07-07] MEDS: ACETAMINOPHEN 325 MG TAB PO ONE (01:13)
[2025-07-07 01:23] VITALS: BP 123/65; TEMP 97.4; O2SAT 98
== END 2025-07-07 01:24 | disposition home or self-care (01) ==
LOC: M ED 22:55
DX: S99.921A Unspecified injury of right foot, initial encounter (principal); Y92.019 Unspecified place in single-family (private) house as the place of occurrence of the external cause; Y93.9 Activity, unspecified; Y99.9 Unspecified external cause status; J45.909 Unspecified asthma, uncomplicated; G40.909 Epilepsy, unspecified, not intractable, without status epilepticus; F20.9 Schizophrenia, unspecified; Z91.030 Bee allergy status; Z91.013 Allergy to seafood; Z91.018 Allergy to other foods; Z79.899 Other long term (current) drug therapy

== ENCOUNTER 2025-07-21 15:10 | Emergency (ER) | payer MEDICARE, MEDICAID ==
[~2025-07-21] VITALS: Ht 180.3 cm; Wt 123.9 kg
[2025-07-21 15:41] LABS: VENOUS BASE EXCESS 0.2 (-2.0-2.0); VENOUS HCO3 25.3 MMOL/L (23.0-27.0); VENOUS O2 SATURATION 95.9 % (60.0-80.0); VENOUS PARTIAL PRESSURE CO2 42.6 mmHg (38.0-50.0); VENOUS PARTIAL PRESSURE O2 80.2 mmHg (30.0-50.0); VENOUS PH 7.392 UNITS (7.330-7.430); VENOUS STANDARD HCO3 24.6 MMOL/L; VENOUS TOTAL CO2 26.6 MMOL/L (24.0-28.0)
[2025-07-21 15:48] LABS: BASO # 0.0 10^3/uL (0.0-0.2); BASO % 0.6 % (0.0-1.0); EOS # 0.3 10^3/uL (0.0-0.5); EOS % 4.7 % (0.0-3.0); LYMPH # 1.9 10^3/uL (1.5-5.0); LYMPH % 26.9 % (24.0-44.0); MONO # 0.7 10^3/uL (0.0-0.8); MONO % 10.2 % (2.0-8.0); NEUTROPHILS # 4.0 10^3/uL (1.5-8.5); NEUTROPHILS % 57.3 % (36.0-66.0); PLATELET COUNT, AUTOMATED 308 10^3/uL (150-450)
[2025-07-21 16:07] LABS: VALPROIC ACID (DEPAKOTE) 5.5 UG/ML (50.0-100.0)
[2025-07-21 16:08] LABS: CK-MB VALUE MASS 2.0 NG/ML (<3.6)
[2025-07-21 16:09] LABS: ALT/SGPT 26 U/L (7.0-40); AST/SGOT 21 U/L (<34); CALCIUM LEVEL 9.5 MG/DL (8.5-10.1); CARBON DIOXIDE LEVEL 26 MMOL/L (20-31); CHLORIDE LEVEL 106 MMOL/L (98-107); CPK CREATINE PHOSPHOKINASE 397 U/L (46-171); CREATININE FOR GFR 0.84 MG/DL (0.70-1.30); GLOMERULAR FILTRATION RATE > 90.0 (>60); MAGNESIUM LEVEL 1.7 MG/DL (1.8-2.4); MB/CK RELATIVE INDEX 0.50 (< OR =4); POTASSIUM SERUM 4.2 MMOL/L (3.5-5.1); SODIUM LEVEL 141 MMOL/L (136-145)
[2025-07-21 17:11] LABS: CK-MB VALUE MASS 1.4 NG/ML (<3.6)
[2025-07-21 17:12] LABS: CPK CREATINE PHOSPHOKINASE 379 U/L (46-171); MB/CK RELATIVE INDEX 0.36 (< OR =4)
[2025-07-21] MEDS ORDERED: DIVA-65 PO (18:32)
[2025-07-21 18:34] VITALS: BP 113/59; TEMP 98; O2SAT 96
== END 2025-07-21 19:12 | disposition home or self-care (01) ==
LOC: EDBD 15:10 → M ED 15:10
DX: R56.9 Unspecified convulsions (principal); R07.9 Chest pain, unspecified; F41.9 Anxiety disorder, unspecified; F32.9 Major depressive disorder, single episode, unspecified; F20.9 Schizophrenia, unspecified; F17.200 Nicotine dependence, unspecified, uncomplicated; Z79.899 Other long term (current) drug therapy; Z91.018 Allergy to other foods; Z91.013 Allergy to seafood; Z91.030 Bee allergy status

== ENCOUNTER 2025-08-18 23:57 | Emergency (ER) | payer MEDICARE, MEDICAID ==
[~2025-08-18] VITALS: Ht 180.3 cm; Wt 112.0 kg
[2025-08-19 00:25] LABS: PLATELET COUNT, AUTOMATED 297 10^3/uL (150-450)
[2025-08-19 00:47] LABS: AMPHETAMINES LEVEL URINE NEGATIVE (NEGATIVE); BARBITURATES URINE NEGATIVE (NEGATIVE); BENZODIAZEPINES URINE NEGATIVE (NEGATIVE); COCAINE METABOLITE URINE NEGATIVE (NEGATIVE); METHADONE URINE NEGATIVE (NEGATIVE); OPIATES URINE NEGATIVE (NEGATIVE); PHENCYCLIDINE URINE NEGATIVE (NEGATIVE)
[2025-08-19 00:51] LABS: ALT/SGPT 27 U/L (7.0-40); AST/SGOT 18 U/L (<34); CALCIUM LEVEL 9.9 MG/DL (8.5-10.1); CARBON DIOXIDE LEVEL 23 MMOL/L (20-31); CHLORIDE LEVEL 108 MMOL/L (98-107); CREATININE FOR GFR 0.85 MG/DL (0.70-1.30); GLOMERULAR FILTRATION RATE > 90.0 (>60); POTASSIUM SERUM 4.6 MMOL/L (3.5-5.1); SALICYLATE LEVEL < 3.0 MG/DL (<30); SODIUM LEVEL 139 MMOL/L (136-145)
[2025-08-19 00:53] LABS: ETHYL ALCOHOL (ETHANOL) < 0.003 % (0.000-0.010)
[2025-08-19 00:54] LABS: CANNABINOIDS URINE POSITIVE (NEGATIVE)
[2025-08-19 02:57] VITALS: BP 129/75; TEMP 97.7; O2SAT 99
== END 2025-08-19 03:07 | disposition home or self-care (01) ==
LOC: M ED 23:57
DX: F43.0 Acute stress reaction (principal); F32.A Depression, unspecified; J45.909 Unspecified asthma, uncomplicated; F41.9 Anxiety disorder, unspecified; F20.9 Schizophrenia, unspecified; F17.210 Nicotine dependence, cigarettes, uncomplicated; F12.10 Cannabis abuse, uncomplicated; F10.10 Alcohol abuse, uncomplicated; Z91.030 Bee allergy status; Z91.013 Allergy to seafood; Z91.018 Allergy to other foods; Z79.899 Other long term (current) drug therapy